=== PATIENT | female | born 1950 | race Caucasian/White ===

== ENCOUNTER 2017-08-26 17:09 | Inpatient (IN) ==
--- NOTE | 2017-08-26 20:19 | Internal Med History&Physical ---
<Luiz Jo - Last Filed: 08/26/17 21:15> Date of Encounter: 08/26/17 Time of Encounter: 20:19 Internal Medicine - H&P: HPI Chief complaint: Hematemesis Admitted From: Hospital to Hospital Transfer Plans for Post Hospital Care: Transfer Other ([facility]) History of present illness: Ms. Clifford is a 67 year old female with a PMH of RA, HTN, HLD, and carotid stenosis who presents from [facility] due to GI bleed. Patient reports waking up at 3 AM this morning vomiting blood 3 episodes. EMS at the scene reported coffee-ground output. Patient reports feeling dizzy at the time "like the room was spinning." She reported to the [facility] ED where a chest x-ray and CT scan of her abdomen pelvis were performed. Images were loaded into PACS and records were requested from [facility]. Patient was discharged from the ED with Meclizine for dizziness and Macrobid for urinary tract infection. Soon after patient returned home, she started having lack stool and called her physician, Dr. Greenberg. He requested the patient report the ED. Patient was transferred to [facility] for further evaluation. Patient reports taking two 81 mg aspirins per day. Past Med Surg Social Fam HX - Past Medical History Medical history: arthritis (RA), hyperlipidemia, hypertension, other (Carotid stenosis) - Past Surgical History Surgical History: carotid endarterectomy (Left), other (LEEP) - Social History Smoking Status: Never smoker Alcohol use: none Drug use: none Current living situation: Home - Independent - Family History Father Hx Family Endocrine Disorder: Yes (DM) All Systems PM: A 10-system review of systems was performed and is negative for pertinent findings except as documented above in the HPI. - Constitutional Constitutional: anorexia, fatigue, lethargy, weakness, no chills, no fever(s), no weight gain, no weight loss - EENT Eyes: no blurry vision, no diplopia, no discharge Nose, mouth and throat: no nasal congestion, no nasal discharge, no sore throat - Cardiovascular Cardiovascular ROS IM: no chest pain, no dyspnea on exertion, no palpitations - Respiratory Respiratory: no cough, no dyspnea, no hemoptysis - Gastrointestinal Gastrointestinal: abdominal pain (Suprapubic), cramping, hematemesis, melena, nausea, vomiting - Genitourinary Genitourinary: no dysuria, no flank pain, no nocturia, no urinary frequency, no urinary urgency - Musculoskeletal Musculoskeletal ROS IM: arthralgias, no muscle cramps, no numbness, no tingling - Integumentary Integumentary IM: other (pale), no erythema, no rash - Neurological Neurological ROS: dizziness, weakness, no numbness, no tingling - Psychiatric Psychiatric: no anxiety, no depression - Endocrine Endocrine IM: fatigue, no flushing, no polydipsia, no polyphagia, no polyuria - Hematologic/Lymphatic Hematologic/Lymphatic: no easy bleeding, no easy bruising - Constitutional Vitals: Temp Pulse Resp BP Pulse Ox 97.5 F L 87 16 104/62 99 08/26/17 19:57 08/26/17 19:57 08/26/17 19:57 08/26/17 19:57 08/26/17 19:57 General appearance: Present: cooperative, A&O X 3, morbidly obese, pleasant, no acute distress, answers questions appropriately - Head Head exam: Present: atraumatic, normocephalic - Eye Eye exam: Present: PERRL, conjuntiva pink (Pale), sclera anicteric Pupils: Present: PERRL - ENT ENT exam: Present: mucous membranes moist, normal external ear exam, normal oropharynx - Neck Neck exam general surgery: Present: supple, trachea midline. Absent: lymphadenopathy, tenderness - Respiratory Respiratory exam: Present: CTAB. Absent: accessory muscle use, rales, rhonchi, wheezes - Cardiovascular Cardiovascular exam: Present: RRR, +S1, +S2. Absent: diastolic murmur, gallop, rubs, systolic murmur - GI/Abdominal GI/Abdominal exam: Present: normal bowel sounds, soft, no peritoneal signs. Absent: distended, guarding, tenderness - Extremities Exam Extremities exam: Present: warm, radial pulses palpable and symmetrical. Absent : calf tenderness, cyanotic, pedal edema - Back Exam Back exam: Present: normal inspection. Absent: tenderness - Neurological Exam Neurological exam: Present: CN II-XII intact, oriented X3, no focal deficits. Absent: pronater drift, facial droop, speech deficit - Psychiatric Psychiatric exam: Present: normal affect, normal mood - Skin Skin exam: Present: dry, intact, pallor, warm. Absent: normal color Internal Med - H&P Results - Pulse Oximetry Interpretation Digit-Finger O2 Sat by Pulse Oximetry: 99 (On RA) - Assessment and plan (1) GI bleed Current Visit: Yes Status: Acute Assessment and plan: Acute GI bleed: Hematemesis 3 and melena for 1 day Labs from [facility] reveal hemoglobin 8.1, hematocrit 28.1 Monitor H&H q6h. Type and screen pending. Transfuse if HGB<8 Hemodynamically stable at this time. Orthostatics pending. Start IVF 125cc/hr Continue Protonix IV twice a day Case discussed with Dr. Ocasio, who requested starting Carafate and continuing PPI NPO except medications, anticipate EGD tomorrow Qualifiers: GI bleed type/associated pathology: unspecified gastrointestinal hemorrhage type Qualified Code(s): K92.2 - Gastrointestinal hemorrhage, unspecified (2) Hypertension Current Visit: No Status: Chronic Assessment and plan: Continue home meds Qualifiers: Hypertension type: essential hypertension Qualified Code(s): I10 - Essential (primary) hypertension (3) Hyperlipidemia Current Visit: No Status: Chronic Assessment and plan: Continue home meds Qualifiers: Hyperlipidemia type: unspecified Qualified Code(s): E78.5 - Hyperlipidemia , unspecified (4) Rheumatoid arthritis Current Visit: No Status: Chronic Assessment and plan: Continue home meds. Avoid NSAIDs due to GI bleed. Hold home aspirin Qualifiers: Rheumatoid arthritis location: unspecified site Rheumatoid factor presence : unspecified presence Qualified Code(s): M06.9 - Rheumatoid arthritis, unspecified (5) Morbid obesity with BMI of 40.0-44.9, adult Current Visit: No Status: Chronic Assessment and plan: Lifestyle modification (6) DVT prophylaxis Current Visit: Yes Status: Acute Assessment and plan: EPCDs - Time Spent With Patient Total time spent is greater than 50% in coordination of care (as documented) at patient's floor/unit and/or counseling patient: <Coco Joseph - Last Filed: 08/26/17 21:37> Date of Encounter: 08/26/17 Internal Medicine - H&P: HPI History of present illness: Ms. Clifford is a 67 year old female All Systems PM: A 10-system review of systems was performed and is negative for pertinent findings except as documented above in the HPI. - Constitutional Vitals: Temp Pulse Resp BP Pulse Ox 97.5 F L 87 16 104/62 99 08/26/17 19:57 08/26/17 19:57 08/26/17 19:57 08/26/17 19:57 08/26/17 19:57 - Attending Attestation I interviewed and examined the patient personally. Reviewed the resident's note , discuss plan of care. 67 year old patient with history of hypertension, hyperlipidemia, rheumatoid arthritis, status post left carotid endarterectomy on aspirin was transferred from [facility] with the diagnosis of GI bleed, symptomatic anemia with dizziness lightheadedness dyspnea on exertion to [facility] for advancing GI care. During my evaluation patient does not have visible active bleeding but is still feel dizziness with low blood pressure therefore orthostatic ordered. Will start conservative treatment with IV fluid under 25 mL per hour, strict I&O's, serial hemoglobin, IV PPI twice a day, IV Zofran, SCDs for DVT prophylaxis, consult GI specialist, nothing by mouth except medication. 2 unit PRC type and screen and will consider transfusion if hemoglobin less than 8 or active GI bleed with symptoms. No baseline hemoglobin known. No history of blood transfusion in the past. - Assessment and plan (1) GI bleed Current Visit: Yes Status: Acute Qualifiers: GI bleed type/associated pathology: unspecified gastrointestinal hemorrhage type Qualified Code(s): K92.2 - Gastrointestinal hemorrhage, unspecified (2) Hypertension Current Visit: No Status: Chronic Qualifiers: Hypertension type: essential hypertension Qualified Code(s): I10 - Essential (primary) hypertension (3) Hyperlipidemia Current Visit: No Status: Chronic Qualifiers: Hyperlipidemia type: unspecified Qualified Code(s): E78.5 - Hyperlipidemia , unspecified (4) Morbid obesity with BMI of 40.0-44.9, adult Current Visit: No Status: Chronic (5) Rheumatoid arthritis Current Visit: No Status: Chronic Qualifiers: Rheumatoid arthritis location: unspecified site Rheumatoid factor presence : unspecified presence Qualified Code(s): M06.9 - Rheumatoid arthritis, unspecified (6) DVT prophylaxis Current Visit: Yes Status: Acute - Time Spent With Patient Total time spent is greater than 50% in coordination of care (as documented) at patient's floor/unit and/or counseling patient:
[2017-08-26] MEDS ORDERED: Naloxone 0.4 MG/ML INJ IVP PRN (21:05)
[2017-08-26 21:56] LABS: Basophils % 0.6 %; Eosinophils % 0.4 %; Hematocrit 25.4 % (35.3-44.9); Hemoglobin 7.5 g/dL (11.5-15.4); Immature Granulocytes % 0.3 % (0-4); Lymphocytes # 2.3 K/mcL (0.6-4.6); Lymphocytes % 33.8 %; Mean Corpuscular HGB Conc 29.5 g/dL (31.6-35.5); Mean Corpuscular Hemoglobin 23.5 pg (28.0-33.3); Mean Corpuscular Volume 79.6 fL (83.0-100.0); Mean Platelet Volume 10.3 fL (9.4-12.4); Monocytes # 0.6 K/mcL (0.0-1.3); Monocytes % 8.7 %; Neutrophils # 3.8 K/mcL (1.6-8.9); Platelet Count 134 K/mcL (140-400); Red Blood Count 3.19 M/mcL (3.82-4.97); Red Cell Distribution Width 17.2 % (11.5-14.5); Segmented Neutrophils % 56.2 %
[2017-08-26 22:05] LABS: INR 1.5; Prothrombin Time 16.6 Seconds (9.4-12.1)
[2017-08-26 22:08] LABS: Activated Partial Thrombo Time 33.4 Seconds (26.0-36.0)
[2017-08-26 22:15] LABS: BUN/Creatinine Ratio 55 (6-26); Blood Urea Nitrogen 47 mg/dL (8-23); Calcium 8.4 mg/dL (8.6-10.3); Carbon Dioxide 23 mEq/L (23-29); Chloride 114 mEq/L (98-107); Glucose 119 mg/dL (70-105); Osmolality,Calculated 307 (280-300); Potassium 4.4 mEq/L (3.5-5.1); Sodium 142 mEq/L (136-145); eGFR For African Americans > 60 (> 60); eGFR For Non-African Americans > 60 (> 60)
[2017-08-26] MEDS: Sucralfate 1 GM TABLET PO SCH (22:33)
[2017-08-26] MEDS: 0.9 % Sodium Chloride 1,000 ML IVC SCH (22:33)
[2017-08-27] MEDS: Ondansetron 4 MG/2 ML VIAL IVP PRN ×2 (01:32→16:14)
[2017-08-27] MEDS ORDERED: 0.9 % Sodium Chloride 250 ML ONE (02:40)
[2017-08-27] MEDS: Pantoprazole 40 MG VIAL IVP SCH ×2 (05:45→17:47)
[2017-08-27 06:37] LABS: Hematocrit 27.6 % (35.3-44.9); Hemoglobin 8.4 g/dL (11.5-15.4)
[2017-08-27] MEDS: Sucralfate 1 GM TABLET PO SCH ×4 (08:30→22:02)
--- NOTE | 2017-08-27 10:28 | Anesthesia Evaluation PreOp ---
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 History: Denies Any Significant HX Other Medical History: Other (obesity BMI=41.2, RA) Anesthesia History: Past Anesthesia, Problems (PONV) Alcohol Use: none Drug use: none Medications and Allergies Aspirin Enteric Coated [Aspirin EC] 81 mg PO DAILY 08/27/17 [History] Atorvastatin [Lipitor] 40 mg PO HS 08/27/17 [History] Clopidogrel [Plavix] 75 mg PO DAILY 08/27/17 [History] Furosemide [Lasix] 20 mg PO DAILY 08/27/17 [History] Hydroxychloroquine Sulfate [Plaquenil] 200 mg PO DAILY 08/27/17 [History] Lisinopril [Zestril] 5 mg PO DAILY 08/27/17 [History] Meclizine [Antivert] 12.5 - 25 mg PO Q8H PRN 08/27/17 [History] Nitrofurantoin Monohyd/M-Cryst [Macrobid 100 mg Capsule] 100 mg PO BID 08/27/17 [History] Pantoprazole Sodium 40 mg PO DAILY 08/27/17 [History] 3 Allergy/AdvReac Type Severity Reaction Status Date / Time No Known Drug Allergies Allergy See Verified 08/27/17 10:32 Comments - Meds/Allergy Pre-op Review Medications Reviewed: Yes Allergies Reviewed: Yes Beta Blockers on Current Med List: No Anesthesia Results - Labs 08/27/17 06:22 08/26/17 21:35 Anesthesia Exam Vital Signs/O2 Sat, Most Current Temp Pulse Resp BP Pulse Ox 97.9 F 75 15 140/75 100 08/27/17 11:49 08/27/17 11:49 08/27/17 11:49 08/27/17 11:49 08/27/17 11:49 Height: 5'4''/1.63m Weight: 240 lbs/108.86 kg NPO (# of Hours): 8 Pain Scale: 0 Pain Scale Used: Numeric (1 - 10) - HEENT Pupil (Motor): EOMI Mallampati: III Teeth: Normal (chipped right lower molar) Oral Opening: Greater than 3 - FLASH OVEN OPERATOR LOC: Oriented FLASH OVEN OPERATOR Motor: Normal RUE, Normal LUE, Normal RLE, Normal LLE, Normal Face FLASH OVEN OPERATOR Sensory: Normal: RUE, LUE, RLE, LLE, Face - Cardiac Rhythm: Regular Murmur: None - Pulmonary Breath Sounds: bilateral Clear Respiratory Effort: Symmetrical Anesthesia Assess/Plan ASA Score: 3 Modified [place] Scale for Level of Consciousness: Cooperative, oriented, and tranquil Anesthetic Plan: MAC Monitoring Plan: Standard Monitors
[2017-08-27] MEDS: 0.9 % Sodium Chloride 1,000 ML IVC SCH (11:05)
--- NOTE | 2017-08-27 11:30 | General Surgery Consult Note ---
<James Cyr W - Last Filed: 08/27/17 11:49> Date of Encounter: 08/27/17 Time of Encounter: 09:00 Assessment and Plan (1) GI bleed Current Visit: Yes Status: Acute Based on patient history and physical exam it is likely the patient has an upper GI bleed Plan: Upper GI endoscopy recommended within the next 24-48 hours NPO Carafate slurry IV PPI antiemetics PRN pain control ambulate Qualifiers: GI bleed type/associated pathology: unspecified gastrointestinal hemorrhage type Qualified Code(s): K92.2 - Gastrointestinal hemorrhage, unspecified History of Present Illness Consult date: 08/27/17 Reason for consult: abdominal pain History of present illness: Mrs. Clifford is a 67 year old female with a PMH of RA, HTN, HLD, and carotid stenosis who was given a Surgical consult for an upper GI bleed. The patient had previous episodes of coffee ground emesis 08/26/17 in the morning. She reported feeling dizzy. Currently the patient has epigastric tenderness that has been constant and sharp. The patient has no history of GERD. patient denies pain with eating. Pt last reported melena with a small Bowel movement this morning around 07:00. Last Hemoglobin and Hematocit was 8.4 and 27.6 on08/27/17 Past Med Surg Social Fam HX - Past Medical History Medical history: arthritis (RA), hyperlipidemia, hypertension, other (Carotid stenosis) - Past Surgical History Surgical History: carotid endarterectomy (Left), other (LEEP) Additional surgical history: LEEP - Social History Smoking Status: Never smoker Alcohol use: none Drug use: none - Family History Father Hx Family Endocrine Disorder: Yes (DM) Medications and Allergies Aspirin Enteric Coated [Aspirin EC] 81 mg PO DAILY 08/27/17 [History] Atorvastatin [Lipitor] 40 mg PO HS 08/27/17 [History] Clopidogrel [Plavix] 75 mg PO DAILY 08/27/17 [History] Furosemide [Lasix] 20 mg PO DAILY 08/27/17 [History] Hydroxychloroquine Sulfate [Plaquenil] 200 mg PO DAILY 08/27/17 [History] Lisinopril [Zestril] 5 mg PO DAILY 08/27/17 [History] Meclizine [Antivert] 12.5 - 25 mg PO Q8H PRN 08/27/17 [History] Nitrofurantoin Monohyd/M-Cryst [Macrobid 100 mg Capsule] 100 mg PO BID 08/27/17 [History] Pantoprazole Sodium 40 mg PO DAILY 08/27/17 [History] 3 Allergy/AdvReac Type Severity Reaction Status Date / Time No Known Drug Allergies Allergy See Verified 08/27/17 10:32 Comments Review of Systems All systems PM: The remainder of the systems were reviewed and are negative - Constitutional as per HPI - Cardiovascular no chest pain, no dyspnea, no dyspnea on exertion - Respiratory no dyspnea, no dyspnea on exertion - Gastrointestinal as per HPI - Genitourinary Genitourinary: no change in urinary stream, no difficulty urinating - Neurological no abnormal gait, no dizziness, no weakness General Surgery Exam Initial Vital Signs Temp Pulse Resp BP Pulse Ox 97.5 F L 87 16 104/62 99 08/26/17 19:57 08/26/17 19:57 08/26/17 19:57 08/26/17 19:57 08/26/17 19:57 - General physical appearance well developed, well nourished - ENT atraumatic, normocephalic, CN 2-12 grossly intact - Respiratory normal expansion, normal respiratory effort, clear to auscultation - Cardiovascular Cardiovascular exam: Present: RRR, no murmurs/rubs/gallops - Abdomen Abdomen general surgery: Present: bowel sounds present, soft, tender Abdominal Tenderness: Present: epigastic Hernia: Present: none - Genitourinary Present: normal external genitalia, normal perineum - Neurologic Present: CN 2-12 grossly intact, normal coordination, normal sensation - Musculoskeletal Present: normal gait, normal posture - Psychiatric Psychiatric general surgery: Present: appropriate, oriented to person, oriented to place, oriented to time, speech is normal, memory intact Exam Initial Vital Signs Temp Pulse Resp BP Pulse Ox 97.5 F L 87 16 104/62 99 08/26/17 19:57 08/26/17 19:57 08/26/17 19:57 08/26/17 19:57 08/26/17 19:57 Results - Labs 08/27/17 06:22 08/26/17 21:35 Abnormal lab results RBC 3.19 M/mcL (3.82-4.97) L 07/05/18 21:35 Hgb 8.4 g/dL (11.5-15.4) L 08/27/17 06:22 Hct 27.6 % (35.3-44.9) L 08/27/17 06:22 MCV 79.6 fL (83.0-100.0) L 08/26/17 21:35 MCH 23.5 pg (28.0-33.3) L 08/26/17 21:35 MCHC 29.5 g/dL (31.6-35.5) L 08/26/17 21:35 RDW 17.2 % (11.5-14.5) H 08/26/17 21:35 Plt Count 134 K/mcL (140-400) L 08/26/17 21:35 PT 16.6 Seconds (9.4-12.1) H 08/26/17 21:35 Chloride 114 mEq/L (98-107) H 08/26/17 21:35 BUN 47 mg/dL (8-23) H 08/26/17 21:35 BUN/Creatinine Ratio 55 (6-26) H 08/26/17 21:35 Glucose 119 mg/dL (70-105) H 08/26/17 21:35 POC Glucose 147 mg/dL (70-99) H 08/27/17 05:36 Calculated Osmolality 307 (280-300) H 08/26/17 21:35 Calcium 8.4 mg/dL (8.6-10.3) L 08/26/17 21:35 Diabetes panel 08/26/17 Range/Units 21:35 Sodium 142 (136-145) mEq/L Potassium 4.4 (3.5-5.1) mEq/L Chloride 114 H (98-107) mEq/L Carbon Dioxide 23 (23-29) mEq/L BUN 47 H (8-23) mg/dL Creatinine 0.85 (0.60-1.20) mg/dL Glucose 119 H (70-105) mg/dL Calcium 8.4 L (8.6-10.3) mg/dL Calcium panel 08/26/17 Range/Units 21:35 Calcium 8.4 L (8.6-10.3) mg/dL Pituitary panel 08/26/17 Range/Units 21:35 Sodium 142 (136-145) mEq/L Potassium 4.4 (3.5-5.1) mEq/L Chloride 114 H (98-107) mEq/L Carbon Dioxide 23 (23-29) mEq/L BUN 47 H (8-23) mg/dL Creatinine 0.85 (0.60-1.20) mg/dL Glucose 119 H (70-105) mg/dL Calcium 8.4 L (8.6-10.3) mg/dL Adrenal panel 08/26/17 Range/Units 21:35 Sodium 142 (136-145) mEq/L Potassium 4.4 (3.5-5.1) mEq/L Chloride 114 H (98-107) mEq/L Carbon Dioxide 23 (23-29) mEq/L BUN 47 H (8-23) mg/dL Creatinine 0.85 (0.60-1.20) mg/dL Glucose 119 H (70-105) mg/dL Calcium 8.4 L (8.6-10.3) mg/dL All other labs normal. Consult Discharge Plan - Plan Referrals: Preethi Green [Primary Care Provider] - <Terri Ocasio - Last Filed: 08/27/17 17:37> Date of Encounter: 08/27/17 Assessment and Plan (1) GI bleed Current Visit: Yes Status: Acute discussed with patient given her hematemesis and later melena she likely has an upper GIB she will remain npo, will plan EGD later today continue IVF hydration continue PPI therapy and po carafate liquid 1 gm TID serial Hb checks Qualifiers: GI bleed type/associated pathology: unspecified gastrointestinal hemorrhage type Qualified Code(s): K92.2 - Gastrointestinal hemorrhage, unspecified History of Present Illness Reason for consult: endoscopy Requesting physician: Luiz Jo History of present illness: Patient with hematemesis 2 days ago and went to outside hospital who treated patient with medication and was discharged. The following day she began having melena. She complains of weakness. She has epigastric pain and discomfort for 1 day. She presented to OSH again and was transferred here. No further hematemesis. No nausea currently. She has been started on PPI and carafate. Patient does take aspirin and plavix. Past Med Surg Social Fam HX - Past Medical History Source: patient - Social History Current living situation: Home - Independent Activity Level: Independent ambulation Review of Systems All systems PM: reviewed and no additional remarkable complaints except as stated All systems PM: The remainder of the systems were reviewed and are negative General Surgery Exam Initial Vital Signs Temp Pulse Resp BP Pulse Ox 97.5 F L 87 16 104/62 99 08/26/17 19:57 08/26/17 19:57 08/26/17 19:57 08/26/17 19:57 08/26/17 19:57 - General physical appearance well developed, well nourished, no distress, obese, other (pale) - Eyes PERRL, normal ocular movement - ENT normal mucosa, normocephalic - Neck trachea midline - Respiratory normal respiratory effort, clear to auscultation - Cardiovascular Cardiovascular exam: Present: RRR - Abdomen Abdomen general surgery: Present: bowel sounds present, soft, tender. Absent: guarding, rebound Abdominal Tenderness: Present: epigastic - Integumentary Integumentary general surgery: Present: warm and dry, no abnormal pigmentation - Neurologic Present: CN 2-12 grossly intact - Musculoskeletal Present: normal posture - Psychiatric Psychiatric general surgery: Present: A&Ox3, speech is normal Exam Initial Vital Signs Temp Pulse Resp BP Pulse Ox 97.5 F L 87 16 104/62 99 08/26/17 19:57 08/26/17 19:57 08/26/17 19:57 08/26/17 19:57 08/26/17 19:57 Results - Labs 08/27/17 06:22 08/26/17 21:35 Abnormal lab results RBC 3.19 M/mcL (3.82-4.97) L 08/26/17 21:35 Hgb 8.4 g/dL (11.5-15.4) L 08/27/17 06:22 Hct 27.6 % (35.3-44.9) L 08/27/17 06:22 MCV 79.6 fL (83.0-100.0) L 08/26/17 21:35 MCH 23.5 pg (28.0-33.3) L 08/26/17 21:35 MCHC 29.5 g/dL (31.6-35.5) L 08/26/17 21:35 RDW 17.2 % (11.5-14.5) H 08/26/17 21:35 Plt Count 134 K/mcL (140-400) L 08/26/17 21:35 PT 16.6 Seconds (9.4-12.1) H 08/26/17 21:35 Chloride 114 mEq/L (98-107) H 08/26/17 21:35 BUN 47 mg/dL (8-23) H 08/26/17 21:35 BUN/Creatinine Ratio 55 (6-26) H 08/26/17 21:35 Glucose 119 mg/dL (70-105) H 08/26/17 21:35 POC Glucose 147 mg/dL (70-99) H 08/27/17 05:36 Calculated Osmolality 307 (280-300) H 08/26/17 21:35 Calcium 8.4 mg/dL (8.6-10.3) L 08/26/17 21:35 Diabetes panel 08/26/17 Range/Units 21:35 Sodium 142 (136-145) mEq/L Potassium 4.4 (3.5-5.1) mEq/L Chloride 114 H (98-107) mEq/L Carbon Dioxide 23 (23-29) mEq/L BUN 47 H (8-23) mg/dL Creatinine 0.85 (0.60-1.20) mg/dL Glucose 119 H (70-105) mg/dL Calcium 8.4 L (8.6-10.3) mg/dL Calcium panel 08/26/17 Range/Units 21:35 Calcium 8.4 L (8.6-10.3) mg/dL Pituitary panel 08/26/17 Range/Units 21:35 Sodium 142 (136-145) mEq/L Potassium 4.4 (3.5-5.1) mEq/L Chloride 114 H (98-107) mEq/L Carbon Dioxide 23 (23-29) mEq/L BUN 47 H (8-23) mg/dL Creatinine 0.85 (0.60-1.20) mg/dL Glucose 119 H (70-105) mg/dL Calcium 8.4 L (8.6-10.3) mg/dL Adrenal panel 08/26/17 Range/Units 21:35 Sodium 142 (136-145) mEq/L Potassium 4.4 (3.5-5.1) mEq/L Chloride 114 H (98-107) mEq/L Carbon Dioxide 23 (23-29) mEq/L BUN 47 H (8-23) mg/dL Creatinine 0.85 (0.60-1.20) mg/dL Glucose 119 H (70-105) mg/dL Calcium 8.4 L (8.6-10.3) mg/dL All other labs normal. - Attending Attestation I examined this patient and my medical decision-making was reviewed with the Resident Physician. I agree with the documented findings, disposition and treatment plan as described except to the extent set forth below.
--- NOTE | 2017-08-27 13:20 | Internal Med Progress Note ---
<ChadwickGabyChris Wali - Last Filed: 08/27/17 13:14> Date of Encounter: 08/27/17 Time of Encounter: 13:15 - Assessment and plan (1) GI bleed Current Visit: Yes Status: Acute Assessment and plan: Patient presented with hematemesis and melena, with a history of chronic aspirin use and NSAID use for RA. This is likely a manifestation of peptic ulcer disease. However the patient also has an elevated INR which could represent liver damage. Surgery has been consulted and an EGD is scheduled. I have also ordered a CMP for tomorrow morning to monitor liver function. The patient has a stable H&H after 1 unit of blood, and she is receiving Protonix IV. Will continue to monitor H&H. Qualifiers: GI bleed type/associated pathology: unspecified gastrointestinal hemorrhage type Qualified Code(s): K92.2 - Gastrointestinal hemorrhage, unspecified (2) Hypertension Current Visit: No Status: Chronic Assessment and plan: chronic and controlled on home meds Qualifiers: Hypertension type: essential hypertension Qualified Code(s): I10 - Essential (primary) hypertension (3) Hyperlipidemia Current Visit: No Status: Chronic Assessment and plan: Chronic and controlled on home meds Qualifiers: Hyperlipidemia type: unspecified Qualified Code(s): E78.5 - Hyperlipidemia , unspecified (4) Morbid obesity with BMI of 40.0-44.9, adult Current Visit: No Status: Chronic Assessment and plan: Patient will be counseled prior to discharge (5) Rheumatoid arthritis Current Visit: No Status: Chronic Assessment and plan: Chronic and controlled with home meds Qualifiers: Rheumatoid arthritis location: unspecified site Rheumatoid factor presence : unspecified presence Qualified Code(s): M06.9 - Rheumatoid arthritis, unspecified (6) DVT prophylaxis Current Visit: Yes Status: Acute Assessment and plan: DVT prophylaxis with pneumatic leg devices - Time Spent With Patient Total time spent is greater than 50% in coordination of care (as documented) at patient's floor/unit and/or counseling patient: - Subjective Interval history: Patient was admitted for hematemesis and melena. Since admission patient has not had any more episodes of hematemesis, but has had bowel movements. She also complains of intermittent upper abdominal pain. She denies chest pain or shortness of breath. She was informed of the plan for endoscopy. - Constitutional Vitals: Temp Pulse Resp BP Pulse Ox 97.9 F 75 15 140/75 100 08/27/17 11:49 08/27/17 11:49 08/27/17 11:49 08/27/17 11:49 08/27/17 11:49 General appearance: Present: cooperative, A&O X 3, morbidly obese, pleasant, no acute distress, answers questions appropriately Exam: No acute distress Alert and oriented x3 Mucous membranes moist Skin warm and dry Heart regular rate and rhythm with 3/6 systolic ejection murmur Lungs clear to auscultation bilaterally, without adventitia Abdomen tender to palpation in bilateral upper quadrants, bowel sounds normal Internal Medicine: Result - Labs CBC & Chem 7: 08/27/17 06:22 08/26/17 21:35 Labs: Short CBC 08/26/17 08/27/17 Range/Units 21:35 06:22 WBC 6.8 (4.3-11.1) K/mcL Hgb 7.5 L 8.4 L (11.5-15.4) g/dL Hct 25.4 L 27.6 L (35.3-44.9) % Plt Count 134 L (140-400) K/mcL Neutrophils # 3.8 (1.6-8.9) K/mcL BMP 08/26/17 21:35 Sodium 142 Potassium 4.4 Chloride 114 H Carbon Dioxide 23 BUN 47 H Creatinine 0.85 Glucose 119 H Calcium 8.4 L - ABG Interpretation ABG results: PT/INR, D-dimer PT 16.6 Seconds (9.4-12.1) H 08/26/17 21:35 Consult Discharge Plan - Plan Referrals: Preethi Green [Primary Care Provider] - <Bella Wilder - Last Filed: 08/27/17 18:51> Date of Encounter: 08/27/17 - Assessment and plan (1) GI bleed Current Visit: Yes Status: Acute Qualifiers: GI bleed type/associated pathology: unspecified gastrointestinal hemorrhage type Qualified Code(s): K92.2 - Gastrointestinal hemorrhage, unspecified (2) Hypertension Current Visit: No Status: Chronic Qualifiers: Hypertension type: essential hypertension Qualified Code(s): I10 - Essential (primary) hypertension (3) Hyperlipidemia Current Visit: No Status: Chronic Qualifiers: Hyperlipidemia type: unspecified Qualified Code(s): E78.5 - Hyperlipidemia , unspecified (4) Morbid obesity with BMI of 40.0-44.9, adult Current Visit: No Status: Chronic (5) Rheumatoid arthritis Current Visit: No Status: Chronic Qualifiers: Rheumatoid arthritis location: unspecified site Rheumatoid factor presence : unspecified presence Qualified Code(s): M06.9 - Rheumatoid arthritis, unspecified (6) DVT prophylaxis Current Visit: Yes Status: Acute - Time Spent With Patient Total time spent is greater than 50% in coordination of care (as documented) at patient's floor/unit and/or counseling patient: - Constitutional Vitals: Temp Pulse Resp BP Pulse Ox 98.3 F 59 18 134/58 100 08/27/17 16:55 08/27/17 16:55 08/27/17 16:55 08/27/17 16:55 08/27/17 16:55 Internal Medicine: Result - Labs CBC & Chem 7: 08/27/17 06:22 08/26/17 21:35 Labs: Short CBC 08/26/17 08/27/17 Range/Units 21:35 06:22 WBC 6.8 (4.3-11.1) K/mcL Hgb 7.5 L 8.4 L (11.5-15.4) g/dL Hct 25.4 L 27.6 L (35.3-44.9) % Plt Count 134 L (140-400) K/mcL Neutrophils # 3.8 (1.6-8.9) K/mcL BMP 08/26/17 21:35 Sodium 142 Potassium 4.4 Chloride 114 H Carbon Dioxide 23 BUN 47 H Creatinine 0.85 Glucose 119 H Calcium 8.4 L - ABG Interpretation ABG results: PT/INR, D-dimer PT 16.6 Seconds (9.4-12.1) H 08/26/17 21:35 - Attending Attestation I examined this patient and my medical decision-making was reviewed with the Resident Physician. I agree with the documented findings, disposition and treatment plan as described except to the extent set forth below.
[2017-08-27] MEDS ORDERED: *HR* Propofol 200 MG/20 ML VIAL IVP ONE (16:44)
[2017-08-27] MEDS ORDERED: Lidocaine -MPF 2% 2 ML VIAL ONE (16:45)
[2017-08-27] MEDS ORDERED: 0.9 % Sodium Chloride 1,000 ML IVC SCH ×2 (17:15→23:15)
--- NOTE | 2017-08-27 17:23 | Anesthesia Evaluation Post Op ---
Date of Encounter: 08/27/17 Time of Encounter: 17:21 - Vital Signs Vital Signs: 3 Vital Signs Time 1720 BP 102/52 Pulse 82 Resp 20 O2 Sat 100 - Lungs Lungs: Clear Ascult./Percussion - Airway Airway: Non-obstructed - Cardiovascular Regular Rate - Mental Status Mental Status: Asleep with brisk response to light stimulation - Nausea Vomiting Nausea Vomiting: Not Present - Hydration Hydration: NPO, Has not voided - Discharge PostOp Status: Transfer Patient to floor
--- NOTE | 2017-08-27 17:41 | Event Note ---
Date of Encounter: 08/27/17 Time of Encounter: 17:38 EGD showed moderate sized clot at gastric fundus, no obvious active bleeding. no obvious lesions in stomach or duodenum or esophagus. Likely ulcer or other lesion beneath clot which was not disturbed. recommend continued npo today continue carafate and PPI if Hb stable for 24 hrs ok to start clears will repeat EGD wednesday
[2017-08-28 00:08] LABS: Hematocrit 20.9 % (35.3-44.9)
[2017-08-28 00:10] LABS: Hemoglobin 6.3 g/dL (11.5-15.4)
[2017-08-28] MEDS ORDERED: Pantoprazole 40 MG in 0.9 % Sodium Chloride Mini Bag 100 ML IVC SCH (02:15)
[2017-08-28] MEDS ORDERED: Naloxone 0.4 MG/ML INJ IVP PRN (03:14)
[2017-08-28] MEDS ORDERED: Ondansetron 4 MG/2 ML VIAL IVP PRN (03:14)
[2017-08-28] MEDS: 0.9 % Sodium Chloride 1,000 ML IVC SCH ×2 (03:30→19:48)
[2017-08-28] MEDS ORDERED: 0.9 % Sodium Chloride 250 ML ONE ×2 (03:59→09:51)
[2017-08-28] MEDS: Pantoprazole 40 MG in 0.9 % Sodium Chloride Mini Bag 100 ML IVC SCH ×4 (05:31→19:48)
[2017-08-28] MEDS: Sucralfate 1 GM TABLET PO SCH ×4 (06:32→19:49)
--- NOTE | 2017-08-28 11:22 | Internal Med Progress Note ---
Date of Encounter: 08/28/17 Time of Encounter: 11:19 - Assessment and plan (1) GI bleed Current Visit: Yes Status: Acute Assessment and plan: Patient presented with hematemesis and melena, with a history of chronic aspirin use and NSAID use for RA. PUD most likely based on presentation. She had elevated INR at 1.5. She has no known hepatic disease. A liver ultrasound done today could not adequately visualize Liver. EGD showed clotted blood in gastric fundus. No visualized varicies. - Carefully monitor for hepatic disease with varicies. Repeat INR and follow- up LFT today. If INR and/or LFT abnormal, will get CT abdomen to check for cirrhosis. - Continue 2 units PRBC today. Rehceck H&H per protocol and monitor vital signs closely - Repeat EGD is planned for wednesday Qualifiers: GI bleed type/associated pathology: unspecified gastrointestinal hemorrhage type Qualified Code(s): K92.2 - Gastrointestinal hemorrhage, unspecified (2) Hypertension Current Visit: No Status: Chronic Assessment and plan: chronic and controlled on home meds Qualifiers: Hypertension type: essential hypertension Qualified Code(s): I10 - Essential (primary) hypertension (3) Hyperlipidemia Current Visit: No Status: Chronic Assessment and plan: Chronic and controlled on home meds Qualifiers: Hyperlipidemia type: unspecified Qualified Code(s): E78.5 - Hyperlipidemia , unspecified (4) Morbid obesity with BMI of 40.0-44.9, adult Current Visit: No Status: Chronic Assessment and plan: Patient will be counseled prior to discharge (5) Rheumatoid arthritis Current Visit: No Status: Chronic Qualifiers: Rheumatoid arthritis location: unspecified site Rheumatoid factor presence : unspecified presence Qualified Code(s): M06.9 - Rheumatoid arthritis, unspecified (6) DVT prophylaxis Current Visit: Yes Status: Acute Assessment and plan: DVT prophylaxis with pneumatic leg devices - Time Spent With Patient Total time spent is greater than 50% in coordination of care (as documented) at patient's floor/unit and/or counseling patient: - Subjective Interval history: Patient transferred to step-down unit as she had an acute drop of hemoglobin to 6.3 (was 7.5) and she is being transfused 2 units PRBC at the moment. She currently has no complaints. She denies CP, SOB, n/v, hematemesis, melena, hematochezia. - Constitutional Vitals: Temp Pulse Resp BP Pulse Ox 98.1 F 82 20 112/38 98 08/28/17 10:43 08/28/17 10:43 08/28/17 10:43 08/28/17 10:43 08/28/17 07:27 General appearance: Present: cooperative, A&O X 3, morbidly obese, pleasant, no acute distress, answers questions appropriately - Head Head exam: Present: atraumatic, normocephalic - Eye Eye exam: Present: PERRL, conjuntiva pink, sclera anicteric Pupils: Present: PERRL - Neck Neck exam general surgery: Present: supple, trachea midline. Absent: lymphadenopathy - Respiratory Respiratory exam: Present: CTAB. Absent: accessory muscle use, rales, rhonchi, wheezes - Cardiovascular Cardiovascular exam: Present: +S1, +S2, systolic murmur. Absent: diastolic murmur, gallop, rubs - GI/Abdominal GI/Abdominal exam: Present: normal bowel sounds, soft, no peritoneal signs. Absent: distended, tenderness - Extremities Exam Extremities exam: Present: warm, radial pulses palpable and symmetrical. Absent : calf tenderness, cyanotic, pedal edema - Neurological Exam Neurological exam: Present: CN II-XII intact, oriented X3, no focal deficits. Absent: pronater drift, facial droop, speech deficit - Skin Skin exam: Present: dry, intact Internal Medicine: Result - Labs CBC & Chem 7: 08/27/17 23:29 08/26/17 21:35 Labs: Short CBC 08/27/17 Range/Units 23:29 Hgb 6.3 L D (11.5-15.4) g/dL Hct 20.9 L (35.3-44.9) % - ABG Interpretation ABG results: PT/INR, D-dimer PT 16.6 Seconds (9.4-12.1) H 08/26/17 21:35 - Impressions Impressions Liver Ultrasound 08/28/17 09:00 IMPRESSION: Examination degraded by overlying bowel gas. Possible subtle nodular contour of the hepatic surface may represent cirrhosis, however, the liver is not well evaluated due to extensive overlying bowel gas. D/ / Steve Cheng MD / Steve Cheng MD Interpreting Provider: Steve Cheng MD Consult Discharge Plan - Plan Referrals: Preethi Green [Primary Care Provider] -
--- NOTE | 2017-08-28 14:15 | General Surgery Consult Note ---
Addendum entered and electronically signed by Lico Garcia 08/28/17 14:47: Continue monitoring hemoglobin and hematocrit Original Note: <Lico Garcia - Last Filed: 08/28/17 14:21> Date of Encounter: 08/28/17 Time of Encounter: 09:00 Assessment and Plan (1) GI bleed Current Visit: Yes Status: Acute Repeat GI endoscopy 08/30 Ice chips and non-red popsicales IV PPI antiemetics PRN pain control ambulate carafate slurry Qualifiers: GI bleed type/associated pathology: unspecified gastrointestinal hemorrhage type Qualified Code(s): K92.2 - Gastrointestinal hemorrhage, unspecified History of Present Illness Consult date: 08/28/17 Reason for consult: abdominal pain (GI Bleed unspecified) History of present illness: Mrs. Clifford is a 67 year old female with a PMH of RA, HTN, HLD, and carotid stenosis who was given a Surgical consult for an upper GI bleed. Patient appears in no acute distress. Patient requested liquids, was allowed to have ice chips and popsicles that aren't red. Past Med Surg Social Fam HX - Past Medical History Medical history: arthritis (RA), hyperlipidemia, hypertension, other (Carotid stenosis) - Past Surgical History Surgical History: carotid endarterectomy (Left), other (LEEP) Additional surgical history: LEEP - Social History Smoking Status: Never smoker Alcohol use: none Drug use: none - Family History Father Hx Family Endocrine Disorder: Yes (DM) Medications and Allergies Aspirin Enteric Coated [Aspirin EC] 81 mg PO DAILY 08/27/17 [History] Atorvastatin [Lipitor] 40 mg PO HS 08/27/17 [History] Clopidogrel [Plavix] 75 mg PO DAILY 08/27/17 [History] Furosemide [Lasix] 20 mg PO DAILY 08/27/17 [History] Hydroxychloroquine Sulfate [Plaquenil] 200 mg PO DAILY 08/27/17 [History] Lisinopril [Zestril] 5 mg PO DAILY 08/27/17 [History] Meclizine [Antivert] 12.5 - 25 mg PO Q8H PRN 08/27/17 [History] Nitrofurantoin Monohyd/M-Cryst [Macrobid 100 mg Capsule] 100 mg PO BID 08/27/17 [History] Pantoprazole Sodium 40 mg PO DAILY 08/27/17 [History] 3 Allergy/AdvReac Type Severity Reaction Status Date / Time No Known Drug Allergies Allergy See Verified 08/27/17 10:32 Comments Review of Systems All systems PM: The remainder of the systems were reviewed and are negative General Surgery Exam Initial Vital Signs Temp Pulse Resp BP Pulse Ox 97.5 F L 87 16 104/62 99 08/26/17 19:57 08/26/17 19:57 08/26/17 19:57 08/26/17 19:57 08/26/17 19:57 - General physical appearance well developed, well nourished, no distress - Abdomen Abdomen general surgery: Present: soft, tender Abdominal Tenderness: Present: epigastic - Psychiatric Psychiatric general surgery: Present: appropriate, oriented to person, oriented to place Exam Initial Vital Signs Temp Pulse Resp BP Pulse Ox 97.5 F L 87 16 104/62 99 08/26/17 19:57 08/26/17 19:57 08/26/17 19:57 08/26/17 19:57 08/26/17 19:57 Results - Labs 08/27/17 23:29 08/26/17 21:35 Abnormal lab results RBC 3.19 M/mcL (3.82-4.97) L 08/26/17 21:35 Hgb 6.3 g/dL (11.5-15.4) L D 08/27/17 23:29 Hct 20.9 % (35.3-44.9) L 08/27/17 23:29 MCV 79.6 fL (83.0-100.0) L 08/26/17 21:35 MCH 23.5 pg (28.0-33.3) L 08/26/17 21:35 MCHC 29.5 g/dL (31.6-35.5) L 08/26/17 21:35 RDW 17.2 % (11.5-14.5) H 08/26/17 21:35 Plt Count 134 K/mcL (140-400) L 08/26/17 21:35 PT 16.6 Seconds (9.4-12.1) H 08/26/17 21:35 Chloride 114 mEq/L (98-107) H 08/26/17 21:35 BUN 47 mg/dL (8-23) H 08/26/17 21:35 BUN/Creatinine Ratio 55 (6-26) H 08/26/17 21:35 Glucose 119 mg/dL (70-105) H 08/26/17 21:35 POC Glucose 125 mg/dL (70-99) H 08/27/17 17:38 Calculated Osmolality 307 (280-300) H 08/26/17 21:35 Calcium 8.4 mg/dL (8.6-10.3) L 08/26/17 21:35 All other labs normal. Consult Discharge Plan - Plan Referrals: Preethi Green [Primary Care Provider] - <Laith Toledo - Last Filed: 08/28/17 21:52> Date of Encounter: 08/28/17 Review of Systems All systems PM: The remainder of the systems were reviewed and are negative General Surgery Exam Initial Vital Signs Temp Pulse Resp BP Pulse Ox 97.5 F L 87 16 104/62 99 08/26/17 19:57 08/26/17 19:57 08/26/17 19:57 08/26/17 19:57 08/26/17 19:57 Exam Initial Vital Signs Temp Pulse Resp BP Pulse Ox 97.5 F L 87 16 104/62 99 08/26/17 19:57 08/26/17 19:57 08/26/17 19:57 08/26/17 19:57 08/26/17 19:57 Results - Labs 08/28/17 18:22 08/28/17 15:13 Abnormal lab results RBC 3.39 M/mcL (3.82-4.97) L 08/28/17 15:13 Hgb 8.5 g/dL (11.5-15.4) L 08/28/17 18:22 Hct 26.3 % (35.3-44.9) L 08/28/17 18:22 MCV 80.8 fL (83.0-100.0) L 08/28/17 15:13 MCH 25.4 pg (28.0-33.3) L 08/28/17 15:13 MCHC 31.4 g/dL (31.6-35.5) L 08/28/17 15:13 RDW 17.2 % (11.5-14.5) H 08/28/17 15:13 Plt Count 115 K/mcL (140-400) L 08/28/17 15:13 PT 14.2 Seconds (9.4-12.1) H 08/28/17 15:13 Chloride 117 mEq/L (98-107) H 08/28/17 15:13 BUN 31 mg/dL (8-23) H 08/28/17 15:13 BUN/Creatinine Ratio 36 (6-26) H 08/28/17 15:13 Glucose 114 mg/dL (70-105) H 08/28/17 15:13 POC Glucose 125 mg/dL (70-99) H 08/27/17 17:38 Calculated Osmolality 305 (280-300) H 08/28/17 15:13 Calcium 8.3 mg/dL (8.6-10.3) L 08/28/17 15:13 Total Bilirubin 1.5 mg/dL (0.3-1.0) H 08/28/17 15:13 Direct Bilirubin 0.5 mg/dL (0.0-0.2) H 08/28/17 15:13 Serum Total Protein 5.0 g/dL (6.4-8.9) L 08/28/17 15:13 Albumin 2.8 g/dL (3.5-5.7) L 08/28/17 15:13 Globulin 2.2 g/dL (2.4-3.5) L 08/28/17 15:13 Diabetes panel 08/28/17 Range/Units 15:13 Sodium 144 (136-145) mEq/L Potassium 3.6 (3.5-5.1) mEq/L Chloride 117 H (98-107) mEq/L Carbon Dioxide 24 (23-29) mEq/L BUN 31 H (8-23) mg/dL Creatinine 0.85 (0.60-1.20) mg/dL Glucose 114 H (70-105) mg/dL Calcium 8.3 L (8.6-10.3) mg/dL AST 20 (13-39) Units/L ALT 10 (7-52) Units/L Alkaline Phosphatase 51 (34-104) Units/L Albumin 2.8 L (3.5-5.7) g/dL Calcium panel 08/28/17 Range/Units 15:13 Calcium 8.3 L (8.6-10.3) mg/dL Albumin 2.8 L (3.5-5.7) g/dL Pituitary panel 08/28/17 Range/Units 15:13 Sodium 144 (136-145) mEq/L Potassium 3.6 (3.5-5.1) mEq/L Chloride 117 H (98-107) mEq/L Carbon Dioxide 24 (23-29) mEq/L BUN 31 H (8-23) mg/dL Creatinine 0.85 (0.60-1.20) mg/dL Glucose 114 H (70-105) mg/dL Calcium 8.3 L (8.6-10.3) mg/dL Adrenal panel 08/28/17 Range/Units 15:13 Sodium 144 (136-145) mEq/L Potassium 3.6 (3.5-5.1) mEq/L Chloride 117 H (98-107) mEq/L Carbon Dioxide 24 (23-29) mEq/L BUN 31 H (8-23) mg/dL Creatinine 0.85 (0.60-1.20) mg/dL Glucose 114 H (70-105) mg/dL Calcium 8.3 L (8.6-10.3) mg/dL Total Bilirubin 1.5 H (0.3-1.0) mg/dL AST 20 (13-39) Units/L ALT 10 (7-52) Units/L Alkaline Phosphatase 51 (34-104) Units/L Albumin 2.8 L (3.5-5.7) g/dL All other labs normal. - Attending Attestation patient seen and examined. I have reviewed all labs, imaging, and notes, including this one. I agree with the above assessment and plan and wish to add the following... 67F with LGIB 2/2 UGI source; called overnight due to repeat bloody stools; no further bloody stool reported; likely residual blood making it ways through GI tract. transfused, patient with appropriate response; afebrile; VSS; okay for ice chips today; reassess h/h in AM; if stable and no signs of bleeding, then okay for CLD on 08/29 ; plan for repeat scope with Dr. Ocasio next week
[2017-08-28 15:25] LABS: Basophils % 0.3 %; Eosinophils # 0.1 K/mcL (0.0-0.6); Eosinophils % 2.1 %; Hematocrit 27.4 % (35.3-44.9); Immature Granulocytes % 0.3 % (0-4); Lymphocytes # 2.1 K/mcL (0.6-4.6); Lymphocytes % 36.7 %; Mean Corpuscular HGB Conc 31.4 g/dL (31.6-35.5); Mean Corpuscular Hemoglobin 25.4 pg (28.0-33.3); Mean Corpuscular Volume 80.8 fL (83.0-100.0); Monocytes # 0.6 K/mcL (0.0-1.3); Monocytes % 10.4 %; Neutrophils # 2.9 K/mcL (1.6-8.9); Platelet Count 115 K/mcL (140-400); Red Blood Count 3.39 M/mcL (3.82-4.97); Red Cell Distribution Width 17.2 % (11.5-14.5); Segmented Neutrophils % 50.2 %
[2017-08-28 15:30] LABS: Hemoglobin 8.6 g/dL (11.5-15.4)
[2017-08-28 15:35] LABS: INR 1.3; Prothrombin Time 14.2 Seconds (9.4-12.1)
[2017-08-28 15:47] LABS: Alanine Aminotransferase 10 Units/L (7-52); Albumin 2.8 g/dL (3.5-5.7); Albumin/Globulin Ratio 1.3 (1.1-2.2); Alkaline Phosphatase 51 Units/L (34-104); Aspartate Amino Transferase 20 Units/L (13-39); BUN/Creatinine Ratio 36 (6-26); Bilirubin,Direct 0.5 mg/dL (0.0-0.2); Bilirubin,Total 1.5 mg/dL (0.3-1.0); Blood Urea Nitrogen 31 mg/dL (8-23); Calcium 8.3 mg/dL (8.6-10.3); Carbon Dioxide 24 mEq/L (23-29); Chloride 117 mEq/L (98-107); Globulin 2.2 g/dL (2.4-3.5); Glucose 114 mg/dL (70-105); Osmolality,Calculated 305 (280-300); Potassium 3.6 mEq/L (3.5-5.1); Sodium 144 mEq/L (136-145); eGFR For African Americans > 60 (> 60); eGFR For Non-African Americans > 60 (> 60)
[2017-08-28 18:35] LABS: Hematocrit 26.3 % (35.3-44.9); Hemoglobin 8.5 g/dL (11.5-15.4)
[2017-08-29] MEDS: 0.9 % Sodium Chloride 1,000 ML IVC SCH ×2 (00:31→05:56)
[2017-08-29] MEDS: Pantoprazole 40 MG in 0.9 % Sodium Chloride Mini Bag 100 ML IVC SCH ×5 (00:44→19:51)
[2017-08-29] MEDS: Sucralfate 1 GM TABLET PO SCH ×4 (04:21→19:41)
[2017-08-29 04:41] LABS: Eosinophils % 3.1 %
[2017-08-29 04:43] LABS: Basophils % 0.8 %; Eosinophils # 0.1 K/mcL (0.0-0.6); Hematocrit 24.1 % (35.3-44.9); Hemoglobin 7.7 g/dL (11.5-15.4); Immature Platelets 1.5 % (1.1-6.1); Lymphocytes % 46.2 %; Mean Corpuscular Hemoglobin 26.6 pg (28.0-33.3); Mean Corpuscular Volume 83.1 fL (83.0-100.0); Mean Platelet Volume 9.9 fL (9.4-12.4); Monocytes # 0.3 K/mcL (0.0-1.3); Monocytes % 8.5 %; Neutrophils # 1.5 K/mcL (1.6-8.9); Red Cell Distribution Width 17.5 % (11.5-14.5); Segmented Neutrophils % 41.4 %
[2017-08-29 05:01] LABS: Lymphocytes # 1.7 K/mcL (0.6-4.6); Platelet Count 81 K/mcL (140-400)
[2017-08-29 05:02] LABS: BUN/Creatinine Ratio 36 (6-26); Blood Urea Nitrogen 27 mg/dL (8-23); Calcium 7.9 mg/dL (8.6-10.3); Carbon Dioxide 23 mEq/L (23-29); Chloride 118 mEq/L (98-107); Glucose 102 mg/dL (70-105); Osmolality,Calculated 301 (280-300); Potassium 3.5 mEq/L (3.5-5.1); Sodium 143 mEq/L (136-145); eGFR For African Americans > 60 (> 60); eGFR For Non-African Americans > 60 (> 60)
--- NOTE | 2017-08-29 11:04 | General Surgery Progress Note ---
<Lico Garcia - Last Filed: 08/29/17 11:07> Date of Encounter: 08/29/17 Time of Encounter: 11:00 - Assessment and Plan (1) GI bleed Current Visit: Yes Status: Acute Repeat GI endoscopy 08/30 Spis of clears 250cc q8hr NPO midnight IV PPI antiemetics PRN pain control encourage ambulation carafate slurry Qualifiers: GI bleed type/associated pathology: unspecified gastrointestinal hemorrhage type Qualified Code(s): K92.2 - Gastrointestinal hemorrhage, unspecified Subjective Patient reports: no new complaints, afebrile Narrative: Patient reports she is feeling well. Denies feeling faint, abdominal pain, bowel movements. Objective Vital Signs - Last 8 Hours Temp Pulse Resp BP Pulse Ox 08/29/17 07:46 98.2 F 71 18 113/47 98 08/29/17 04:37 76 08/29/17 03:55 98 F 71 18 110/55 96 Intake and Output 08/28/17 08/29/17 08/29/17 23:59 07:59 15:59 Intake Total 100 / 100 1000 / 1000 100 / 100 Output Total 500 / 500 250 / 250 Balance -400 / -400 750 / 750 100 / 100 Intake: IV Fluids 100 / 100 1000 / 1000 100 / 100 0.9 % Sodium Chloride 1,000 ML 800 / 800 @ 100 mls/hr IVC .Q10H [facility] Rx#: [id number] Protonix 40 MG In 0.9 % Sodium 100 / 100 200 / 200 100 / 100 Chloride (Mini-Bag +) 100 ML @ 20 mls/hr IVC .Q5H [facility] Rx#: [id number] Output: Urine 100 / 100 Catheter 500 / 500 150 / 150 Other: Meal NPO Percent of Meal Consumed 0% Weight 114.6 kg Blood Glucose* 116 101 Patient Weight 08/29/17 23:59 Weight 114.6 kg - General physical appearance well developed, well nourished, no distress - Respiratory normal respiratory effort - Cardiovascular Cardiovascular exam: Present: RRR - Abdomen Abdomen: Present: soft, non tender Hernia: none - Psychiatric oriented to time, oriented to person, oriented to place, speech is normal, memory intact, other - Labs 08/29/17 04:15 08/29/17 04:15 Diabetes panel 08/28/17 08/29/17 Range/Units 15:13 04:15 Sodium 144 143 (136-145) mEq/L Potassium 3.6 3.5 (3.5-5.1) mEq/L Chloride 117 H 118 H (98-107) mEq/L Carbon Dioxide 24 23 (23-29) mEq/L BUN 31 H 27 H (8-23) mg/dL Creatinine 0.85 0.75 (0.60-1.20) mg/dL Glucose 114 H 102 (70-105) mg/dL Calcium 8.3 L 7.9 L (8.6-10.3) mg/dL AST 20 (13-39) Units/L ALT 10 (7-52) Units/L Alkaline Phosphatase 51 (34-104) Units/L Albumin 2.8 L (3.5-5.7) g/dL Calcium panel 08/28/17 08/29/17 Range/Units 15:13 04:15 Calcium 8.3 L 7.9 L (8.6-10.3) mg/dL Albumin 2.8 L (3.5-5.7) g/dL Pituitary panel 08/28/17 08/29/17 Range/Units 15:13 04:15 Sodium 144 143 (136-145) mEq/L Potassium 3.6 3.5 (3.5-5.1) mEq/L Chloride 117 H 118 H (98-107) mEq/L Carbon Dioxide 24 23 (23-29) mEq/L BUN 31 H 27 H (8-23) mg/dL Creatinine 0.85 0.75 (0.60-1.20) mg/dL Glucose 114 H 102 (70-105) mg/dL Calcium 8.3 L 7.9 L (8.6-10.3) mg/dL Adrenal panel 08/28/17 08/29/17 Range/Units 15:13 04:15 Sodium 144 143 (136-145) mEq/L Potassium 3.6 3.5 (3.5-5.1) mEq/L Chloride 117 H 118 H (98-107) mEq/L Carbon Dioxide 24 23 (23-29) mEq/L BUN 31 H 27 H (8-23) mg/dL Creatinine 0.85 0.75 (0.60-1.20) mg/dL Glucose 114 H 102 (70-105) mg/dL Calcium 8.3 L 7.9 L (8.6-10.3) mg/dL Total Bilirubin 1.5 H (0.3-1.0) mg/dL AST 20 (13-39) Units/L ALT 10 (7-52) Units/L Alkaline Phosphatase 51 (34-104) Units/L Albumin 2.8 L (3.5-5.7) g/dL - VTE Documentation of Mechanical Device: Intermittent pneumatic compression device Consult Discharge Plan - Plan Referrals: Preethi Green [Primary Care Provider] - <Laith Toledo - Last Filed: 08/29/17 13:45> Date of Encounter: 08/29/17 Objective Vital Signs - Last 8 Hours Temp Pulse Resp BP Pulse Ox 08/29/17 11:26 98.3 F 76 18 117/54 98 08/29/17 07:46 98.2 F 71 18 113/47 98 Intake and Output 08/28/17 08/29/17 08/29/17 23:59 07:59 15:59 Intake Total 100 / 100 1000 / 1000 600 / 600 Output Total 500 / 500 250 / 250 Balance -400 / -400 750 / 750 600 / 600 Intake: IV Fluids 100 / 100 1000 / 1000 600 / 600 0.9 % Sodium Chloride 1,000 ML 800 / 800 500 / 500 @ 100 mls/hr IVC .Q10H [facility] Rx#: [id number] Protonix 40 MG In 0.9 % Sodium 100 / 100 200 / 200 100 / 100 Chloride (Mini-Bag +) 100 ML @ 20 mls/hr IVC .Q5H [facility] Rx#: [id number] Oral 0 / 0 Output: Urine 100 / 100 Catheter 500 / 500 150 / 150 Other: Meal NPO Percent of Meal Consumed 0% 0% Weight 114.6 kg Blood Glucose* 116 101 100 Patient Weight 08/29/17 23:59 Weight 114.6 kg - Labs 08/29/17 04:15 08/29/17 04:15 Diabetes panel 08/28/17 08/29/17 Range/Units 15:13 04:15 Sodium 144 143 (136-145) mEq/L Potassium 3.6 3.5 (3.5-5.1) mEq/L Chloride 117 H 118 H (98-107) mEq/L Carbon Dioxide 24 23 (23-29) mEq/L BUN 31 H 27 H (8-23) mg/dL Creatinine 0.85 0.75 (0.60-1.20) mg/dL Glucose 114 H 102 (70-105) mg/dL Calcium 8.3 L 7.9 L (8.6-10.3) mg/dL AST 20 (13-39) Units/L ALT 10 (7-52) Units/L Alkaline Phosphatase 51 (34-104) Units/L Albumin 2.8 L (3.5-5.7) g/dL Calcium panel 08/28/17 08/29/17 Range/Units 15:13 04:15 Calcium 8.3 L 7.9 L (8.6-10.3) mg/dL Albumin 2.8 L (3.5-5.7) g/dL Pituitary panel 08/28/17 08/29/17 Range/Units 15:13 04:15 Sodium 144 143 (136-145) mEq/L Potassium 3.6 3.5 (3.5-5.1) mEq/L Chloride 117 H 118 H (98-107) mEq/L Carbon Dioxide 24 23 (23-29) mEq/L BUN 31 H 27 H (8-23) mg/dL Creatinine 0.85 0.75 (0.60-1.20) mg/dL Glucose 114 H 102 (70-105) mg/dL Calcium 8.3 L 7.9 L (8.6-10.3) mg/dL Adrenal panel 08/28/17 08/29/17 Range/Units 15:13 04:15 Sodium 144 143 (136-145) mEq/L Potassium 3.6 3.5 (3.5-5.1) mEq/L Chloride 117 H 118 H (98-107) mEq/L Carbon Dioxide 24 23 (23-29) mEq/L BUN 31 H 27 H (8-23) mg/dL Creatinine 0.85 0.75 (0.60-1.20) mg/dL Glucose 114 H 102 (70-105) mg/dL Calcium 8.3 L 7.9 L (8.6-10.3) mg/dL Total Bilirubin 1.5 H (0.3-1.0) mg/dL AST 20 (13-39) Units/L ALT 10 (7-52) Units/L Alkaline Phosphatase 51 (34-104) Units/L Albumin 2.8 L (3.5-5.7) g/dL - Attending Attestation I have personally seen and examined the patient. I have reviewed pertinent labs , imaging, progress notes, including this one. I agree with the above assessment and plan and wish to include the following... patient looks and feels better; tolerating ice chips; advance to sips, NPO at midnight; likley low level bleeding as h/h declines; cont to trend; plan for repeat scope on 08/30 with Ninfa
--- NOTE | 2017-08-29 14:44 | Internal Med Progress Note ---
<Chris Chadwick - Last Filed: 08/29/17 14:42> Date of Encounter: 08/29/17 Time of Encounter: 14:42 - Assessment and plan (1) GI bleed Current Visit: Yes Status: Acute Assessment and plan: Patient presented with hematemesis and melena, with a history of chronic aspirin use and NSAID use for RA. PUD most likely based on presentation. She had elevated INR at 1.5. She has no known hepatic disease. A liver ultrasound done yesterday could not adequately visualize Liver. EGD showed clotted blood in gastric fundus. No visualized varicies. Patient on protonix and caralfate Repeat EGD planned for tomorrow H&H ordered for this afternoon to determine need for repeat transfusion LFTs within normal limits, suspicion for varices lower, will continue to monitor INR Qualifiers: GI bleed type/associated pathology: unspecified gastrointestinal hemorrhage type Qualified Code(s): K92.2 - Gastrointestinal hemorrhage, unspecified (2) Hypertension Current Visit: No Status: Chronic Assessment and plan: chronic and controlled on home meds Qualifiers: Hypertension type: essential hypertension Qualified Code(s): I10 - Essential (primary) hypertension (3) Hyperlipidemia Current Visit: No Status: Chronic Assessment and plan: Chronic and controlled on home meds Qualifiers: Hyperlipidemia type: unspecified Qualified Code(s): E78.5 - Hyperlipidemia , unspecified (4) Morbid obesity with BMI of 40.0-44.9, adult Current Visit: No Status: Chronic Assessment and plan: Patient will be counseled prior to discharge (5) Rheumatoid arthritis Current Visit: No Status: Chronic Assessment and plan: Chronic and controlled with home meds Qualifiers: Rheumatoid arthritis location: unspecified site Rheumatoid factor presence : unspecified presence Qualified Code(s): M06.9 - Rheumatoid arthritis, unspecified (6) DVT prophylaxis Current Visit: Yes Status: Acute Assessment and plan: DVT prophylaxis with pneumatic leg devices (7) Electrolyte abnormality Current Visit: Yes Status: Acute Assessment and plan: Patient found to be hypocalcemic and hyperchloremic Ionized calcium ordered to fete out true hypocalcemia or malnourishment Normal saline discontinued and half normal saline with 10 meq of potassium started Will check BMP again in the morning - Time Spent With Patient Total time spent is greater than 50% in coordination of care (as documented) at patient's floor/unit and/or counseling patient: - Subjective Interval history: No acute events overnight. Patient states she is more comfortable than the last several days. She was informed of the plan of care and agreed. She denies chest pain or shortness of breath, fever or chill, nausea, vomiting, or diarrhea. - Constitutional Vitals: Temp Pulse Resp BP Pulse Ox 98.3 F 76 18 117/54 98 08/29/17 11:26 08/29/17 11:26 08/29/17 11:26 08/29/17 11:08/29/17 11:26 General appearance: Present: cooperative, A&O X 3, morbidly obese, pleasant, no acute distress, answers questions appropriately Exam: No acute distress Alert and oriented x3 Skin warm and dry without pallor heart regular rate and rhythm with systolic ejection murmur lungs clear to auscultation bilaterally without adventitia abdomen soft and non-tender with normal bowel sounds legs non-edematous Internal Medicine: Result - Labs CBC & Chem 7: 08/29/17 04:15 08/29/17 04:15 Labs: Short CBC 08/28/17 08/28/17 08/29/17 Range/Units 15:13 18:22 04:15 WBC 5.8 3.6 L (4.3-11.1) K/mcL Hgb 8.6 L D 8.5 L 7.7 L (11.5-15.4) g/dL Hct 27.4 L 26.3 L 24.1 L (35.3-44.9) % Plt Count 115 L 81 L (140-400) K/mcL Neutrophils # 2.9 1.5 L (1.6-8.9) K/mcL BMP 08/28/17 08/29/17 15:13 04:15 Sodium 144 143 Potassium 3.6 3.5 Chloride 117 H 118 H Carbon Dioxide 24 23 BUN 31 H 27 H Creatinine 0.85 0.75 Glucose 114 H 102 Calcium 8.3 L 7.9 L Liver Function 08/28/17 Range/Units 15:13 Total Bilirubin 1.5 H (0.3-1.0) mg/dL Direct Bilirubin 0.5 H (0.0-0.2) mg/dL AST 20 (13-39) Units/L ALT 10 (7-52) Units/L Alkaline Phosphatase 51 (34-104) Units/L Albumin 2.8 L (3.5-5.7) g/dL - ABG Interpretation ABG results: PT/INR, D-dimer PT 14.2 Seconds (9.4-12.1) H 08/28/17 15:13 - Impressions Impressions Liver Ultrasound 08/28/17 09:00 IMPRESSION: Examination degraded by overlying bowel gas. Possible subtle nodular contour of the hepatic surface may represent cirrhosis, however, the liver is not well evaluated due to extensive overlying bowel gas. D/ / 08/28/2017 11:26:08 Steve Cheng MD / Latanya Zayas Interpreting Provider: Steve Cheng MD - VTE Documentation of Mechanical Device: Intermittent pneumatic compression device Consult Discharge Plan - Plan Referrals: Preethi Green [Primary Care Provider] - <Bella Wilder - Last Filed: 08/29/17 18:14> Date of Encounter: 08/29/17 - Assessment and plan (1) GI bleed Current Visit: Yes Status: Acute Qualifiers: GI bleed type/associated pathology: unspecified gastrointestinal hemorrhage type Qualified Code(s): K92.2 - Gastrointestinal hemorrhage, unspecified (2) Hypertension Current Visit: No Status: Chronic Qualifiers: Hypertension type: essential hypertension Qualified Code(s): I10 - Essential (primary) hypertension (3) Hyperlipidemia Current Visit: No Status: Chronic Qualifiers: Hyperlipidemia type: unspecified Qualified Code(s): E78.5 - Hyperlipidemia , unspecified (4) Morbid obesity with BMI of 40.0-44.9, adult Current Visit: No Status: Chronic (5) Rheumatoid arthritis Current Visit: No Status: Chronic Qualifiers: Rheumatoid arthritis location: unspecified site Rheumatoid factor presence : unspecified presence Qualified Code(s): M06.9 - Rheumatoid arthritis, unspecified (6) DVT prophylaxis Current Visit: Yes Status: Acute (7) Electrolyte abnormality Current Visit: Yes Status: Acute - Time Spent With Patient Total time spent is greater than 50% in coordination of care (as documented) at patient's floor/unit and/or counseling patient: - Constitutional Vitals: Temp Pulse Resp BP Pulse Ox 98.3 F 75 18 103/58 99 08/29/17 17:06 08/29/17 17:06 08/29/17 17:06 08/29/17 17:06 08/29/17 17:06 Internal Medicine: Result - Labs CBC & Chem 7: 08/29/17 04:15 08/29/17 04:15 Labs: Short CBC 08/28/17 08/29/17 Range/Units 18:22 04:15 WBC 3.6 L (4.3-11.1) K/mcL Hgb 8.5 L 7.7 L (11.5-15.4) g/dL Hct 26.3 L 24.1 L (35.3-44.9) % Plt Count 81 L (140-400) K/mcL Neutrophils # 1.5 L (1.6-8.9) K/mcL BMP 08/29/17 04:15 Sodium 143 Potassium 3.5 Chloride 118 H Carbon Dioxide 23 BUN 27 H Creatinine 0.75 Glucose 102 Calcium 7.9 L - ABG Interpretation ABG results: PT/INR, D-dimer PT 14.2 Seconds (9.4-12.1) H 08/28/17 15:13 - Impressions Impressions Liver Ultrasound 08/28/17 09:00 IMPRESSION: Examination degraded by overlying bowel gas. Possible subtle nodular contour of the hepatic surface may represent cirrhosis, however, the liver is not well evaluated due to extensive overlying bowel gas. D/ / 08/28/2017 11:26:08 Steve Cheng MD / Latanya Zayas Interpreting Provider: Steve Cheng MD - Attending Attestation I examined this patient and my medical decision-making was reviewed with the Resident Physician. I agree with the documented findings, disposition and treatment plan as described except to the extent set forth below.
[2017-08-30] MEDS: Pantoprazole 40 MG in 0.9 % Sodium Chloride Mini Bag 100 ML IVC SCH ×4 (00:33→20:08)
[2017-08-30] MEDS: Sucralfate 1 GM TABLET PO SCH ×4 (00:58→20:10)
[2017-08-30 04:18] LABS: Eosinophils % 2.6 %; Hemoglobin 7.8 g/dL (11.5-15.4); Immature Granulocytes % 0.3 % (0-4); Mean Corpuscular Hemoglobin 26.6 pg (28.0-33.3); Red Blood Count 2.93 M/mcL (3.82-4.97)
[2017-08-30 04:20] LABS: Basophils % 0.3 %; Eosinophils # 0.1 K/mcL (0.0-0.6); Hematocrit 24.5 % (35.3-44.9); Immature Platelets 2.1 % (1.1-6.1); Lymphocytes # 1.3 K/mcL (0.6-4.6); Lymphocytes % 36.9 %; Mean Corpuscular HGB Conc 31.8 g/dL (31.6-35.5); Mean Corpuscular Volume 83.6 fL (83.0-100.0); Mean Platelet Volume 10.4 fL (9.4-12.4); Monocytes # 0.3 K/mcL (0.0-1.3); Monocytes % 8.1 %; Neutrophils # 1.8 K/mcL (1.6-8.9); Platelet Count 83 K/mcL (140-400); Segmented Neutrophils % 51.8 %
[2017-08-30 04:20] LABS: VBG Ionized Calcium 1.21 mmol/L (1.15-1.35)
[2017-08-30 04:36] LABS: BUN/Creatinine Ratio 29 (6-26); Blood Urea Nitrogen 20 mg/dL (8-23); Calcium 7.8 mg/dL (8.6-10.3); Carbon Dioxide 20 mEq/L (23-29); Chloride 117 mEq/L (98-107); Glucose 84 mg/dL (70-105); Osmolality,Calculated 294 (280-300); Potassium 3.6 mEq/L (3.5-5.1); Sodium 141 mEq/L (136-145); eGFR For African Americans > 60 (> 60); eGFR For Non-African Americans > 60 (> 60)
--- NOTE | 2017-08-30 10:12 | General Surgery Progress Note ---
<Lico Garcia - Last Filed: 08/30/17 10:17> Date of Encounter: 08/30/17 Time of Encounter: 09:00 - Assessment and Plan (1) GI bleed Status: Acute Repeat GI endoscopy 08/30 Spis of clears 250cc q8hr NPO midnight IV PPI antiemetics PRN pain control encourage ambulation carafate slurry monitor hemoglobin and hematocrit Qualifiers: GI bleed type/associated pathology: unspecified gastrointestinal hemorrhage type Qualified Code(s): K92.2 - Gastrointestinal hemorrhage, unspecified Subjective Narrative: Mrs. Clifford is a 67 year old female with a PMH of RA, HTN, HLD, and carotid stenosis who was given a Surgical consult for an upper GI bleed. Patient appears in no acute distress. Patient requested liquids, was allowed to have ice chips and popsicles that aren't red. Objective Vital Signs - Last 8 Hours Temp Pulse Resp BP Pulse Ox 08/30/17 06:34 98.1 F 73 122/50 94 08/30/17 04:21 70 08/30/17 04:18 98.1 F 76 18 125/50 96 Intake and Output 08/29/17 08/30/17 08/30/17 23:59 07:59 15:59 Intake Total 100 / 100 1205 / 1205 0 / 0 Output Total 650 / 650 Balance 100 / 100 555 / 555 0 / 0 Intake: IV Fluids 100 / 100 1205 / 1205 Protonix 40 MG In 0.9 % Sodium 100 / 100 200 / 200 Chloride (Mini-Bag +) 100 ML @ 20 mls/hr IVC .Q5H [facility] Rx#: [id number] KCl 10 MEQ In 0.45% Sodium 1005 / 1005 Chloride 1000 Ml 1000 Ml 1,000 ML @ 75 mls/hr IVC .[id number] [facility] Rx#:[id number] Oral 0 / 0 0 / 0 Output: Catheter 650 / 650 Urethral (Hall) 650 / 650 Other: Meal Dinner Breakfast Percent of Meal Consumed 0% 0% Weight 116.5 kg Blood Glucose* 86 84 Patient Weight 08/30/17 23:59 Weight 116.5 kg - General physical appearance well developed, well nourished, no distress - Respiratory normal respiratory effort - Cardiovascular Cardiovascular exam: Present: RRR - Abdomen Abdomen: Present: soft, non tender - Psychiatric oriented to time, oriented to person, oriented to place - Labs 08/30/17 04:00 08/30/17 04:00 Diabetes panel 08/30/17 Range/Units 04:00 Sodium 141 (136-145) mEq/L Potassium 3.6 (3.5-5.1) mEq/L Chloride 117 H (98-107) mEq/L Carbon Dioxide 20 L (23-29) mEq/L BUN 20 (8-23) mg/dL Creatinine 0.70 (0.60-1.20) mg/dL Glucose 84 (70-105) mg/dL Calcium 7.8 L (8.6-10.3) mg/dL Calcium panel 08/30/17 Range/Units 04:00 Calcium 7.8 L (8.6-10.3) mg/dL Pituitary panel 08/30/17 Range/Units 04:00 Sodium 141 (136-145) mEq/L Potassium 3.6 (3.5-5.1) mEq/L Chloride 117 H (98-107) mEq/L Carbon Dioxide 20 L (23-29) mEq/L BUN 20 (8-23) mg/dL Creatinine 0.70 (0.60-1.20) mg/dL Glucose 84 (70-105) mg/dL Calcium 7.8 L (8.6-10.3) mg/dL Adrenal panel 08/30/17 Range/Units 04:00 Sodium 141 (136-145) mEq/L Potassium 3.6 (3.5-5.1) mEq/L Chloride 117 H (98-107) mEq/L Carbon Dioxide 20 L (23-29) mEq/L BUN 20 (8-23) mg/dL Creatinine 0.70 (0.60-1.20) mg/dL Glucose 84 (70-105) mg/dL Calcium 7.8 L (8.6-10.3) mg/dL - VTE Documentation of Mechanical Device: Intermittent pneumatic compression device Consult Discharge Plan - Plan Referrals: Preethi Green [Primary Care Provider] - 10/04/17 3:40 pm (please take Picture ID, and insurance card. Patient is put on a waiting list if something comes available sooner) Kanu Ca MD [Partnered Physician] - (Web request sent for follow up appt.) Prescriptions: Omeprazole [PriLOSEC] 40 mg PO BID #60 cap Sucralfate [Carafate] 1 gm PO QIDAC #120 tablet <Laith Toledo - Last Filed: 09/01/17 23:54> Date of Encounter: 09/01/17 Objective - Labs 08/31/17 04:00 08/31/17 04:00 - Attending Attestation I have personally seen and examined the patient. I have reviewed pertinent labs , imaging, progress notes, including this one. I agree with the above assessment and plan
--- NOTE | 2017-08-30 14:58 | Anesthesia Evaluation PreOp ---
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: Denies Any Significant HX Other Medical History: Other (obesity BMI=44.1) Anesthesia History: Past Anesthesia, Problems (PONV) Alcohol Use: none Drug use: none Medications and Allergies Aspirin Enteric Coated [Aspirin EC] 81 mg PO DAILY 08/27/17 [History] Atorvastatin [Lipitor] 40 mg PO HS 08/27/17 [History] Clopidogrel [Plavix] 75 mg PO DAILY 08/27/17 [History] Furosemide [Lasix] 20 mg PO DAILY 08/27/17 [History] Hydroxychloroquine Sulfate [Plaquenil] 200 mg PO DAILY 08/27/17 [History] Lisinopril [Zestril] 5 mg PO DAILY 08/27/17 [History] Meclizine [Antivert] 12.5 - 25 mg PO Q8H PRN 08/27/17 [History] Nitrofurantoin Monohyd/M-Cryst [Macrobid 100 mg Capsule] 100 mg PO BID 08/27/17 [History] Pantoprazole Sodium 40 mg PO DAILY 08/27/17 [History] 3 Allergy/AdvReac Type Severity Reaction Status Date / Time No Known Drug Allergies Allergy See Verified 08/27/17 10:32 Comments - Meds/Allergy Pre-op Review Medications Reviewed: Yes Allergies Reviewed: Yes Beta Blockers on Current Med List: No Anesthesia Results - Labs 08/30/17 04:00 08/30/17 04:00 Anesthesia Exam Vital Signs/O2 Sat/Glucose, Most Recent Temp Pulse Resp BP Pulse Ox 98.1 F 79 18 129/56 96 08/30/17 11:23 08/30/17 11:23 08/30/17 11:23 08/30/17 11:23 08/30/17 11:23 Blood Glucose* 80 Height: 5'4''/1.63m Weight: 256 lbs/116.5 kg NPO (# of Hours): 8 Pain Scale: 0 Pain Scale Used: Numeric (1 - 10) - HEENT Pupil (Motor): EOMI Mallampati: III Teeth: Normal (chipped right lower molar) Oral Opening: Greater than 3 - LOOM FIXER SUPERVISOR LOC: Oriented LOOM FIXER SUPERVISOR Motor: Normal RUE, Normal LUE, Normal RLE, Normal LLE, Normal Face [employer]OM [employer]ER SUPERVISOR Sensory: Normal: RUE, LUE, RLE, LLE, Face - Cardiac Rhythm: Regular Murmur: None - Pulmonary Breath Sounds: bilateral Clear Respiratory Effort: Symmetrical Anesthesia Assess/Plan ASA Score: 3 Modified Chuckie Scale for Level of Consciousness: Cooperative, oriented, and tranquil Anesthetic Plan: MAC Monitoring Plan: Standard Monitors
[2017-08-30] MEDS ORDERED: 0.9 % Sodium Chloride 1,000 ML IVC SCH (15:30)
[2017-08-30] MEDS ORDERED: *HR* Propofol 200 MG/20 ML VIAL IVP ONE (15:37)
--- NOTE | 2017-08-30 17:07 | Internal Med Progress Note ---
<Chris Chadwick - Last Filed: 08/30/17 17:13> Date of Encounter: 08/30/17 Time of Encounter: 17:05 - Assessment and plan (1) GI bleed Current Visit: Yes Status: Acute Assessment and plan: Patient presented with hematemesis and melena, with a history of chronic aspirin use and NSAID use for RA. PUD most likely based on presentation. She had elevated INR at 1.5. She has no known hepatic disease. A liver ultrasound done could not adequately visualize Liver. Primary EGD showed clotted blood in gastric fundus. No visualized varicies. Secondary EGD showed nn bleeding ulcer and grade 1 varices. Patient on protonix and caralfate Outpatient GI follow up planned H&H stable will continue to monitor INR Qualifiers: GI bleed type/associated pathology: unspecified gastrointestinal hemorrhage type Qualified Code(s): K92.2 - Gastrointestinal hemorrhage, unspecified (2) Hypertension Current Visit: No Status: Chronic Assessment and plan: chronic and controlled on home meds Qualifiers: Hypertension type: essential hypertension Qualified Code(s): I10 - Essential (primary) hypertension (3) Hyperlipidemia Current Visit: No Status: Chronic Assessment and plan: Chronic and controlled on home meds Qualifiers: Hyperlipidemia type: unspecified Qualified Code(s): E78.5 - Hyperlipidemia , unspecified (4) Morbid obesity with BMI of 40.0-44.9, adult Current Visit: No Status: Chronic Assessment and plan: Patient will be counseled prior to discharge (5) Rheumatoid arthritis Current Visit: No Status: Chronic Assessment and plan: Chronic and controlled with home meds Qualifiers: Rheumatoid arthritis location: unspecified site Rheumatoid factor presence : unspecified presence Qualified Code(s): M06.9 - Rheumatoid arthritis, unspecified (6) DVT prophylaxis Current Visit: Yes Status: Acute Assessment and plan: DVT prophylaxis with pneumatic leg devices (7) Electrolyte abnormality Current Visit: Yes Status: Acute Assessment and plan: Patient found to be hypocalcemic and hyperchloremic Ionized calcium ordered to fete out true hypocalcemia or malnourishment Normal saline discontinued and half normal saline with 10 meq of potassium started Ionized calcium wthithin normal range, chloride stable Will check BMP again in the morning - Time Spent With Patient Total time spent is greater than 50% in coordination of care (as documented) at patient's floor/unit and/or counseling patient: - Subjective Interval history: No acute events overnight. Patient states she is more comfortable than the last several days. She was informed of the plan of care and agreed. She denies chest pain or shortness of breath, fever or chill, nausea, vomiting, or diarrhea. - Constitutional Vitals: Temp Pulse Resp BP Pulse Ox 98.1 F 74 18 121/41 100 08/30/17 16:15 08/30/17 16:15 08/30/17 16:15 08/30/17 16:15 08/30/17 16:15 General appearance: Present: cooperative, A&O X 3, morbidly obese, pleasant, no acute distress, answers questions appropriately Exam: No acute Distress Alert and Oriented x 3 Heart regular rate and rhythm with systolic ejection murmur Lungs with good air movement, right sided wheeze Abdomen soft and non tender legs without edema Skin positive for pallor Internal Medicine: Result - Labs CBC & Chem 7: 08/30/17 04:00 08/30/17 04:00 Labs: Short CBC 08/30/17 Range/Units 04:00 WBC 3.4 L (4.3-11.1) K/mcL Hgb 7.8 L (11.5-15.4) g/dL Hct 24.5 L (35.3-44.9) % Plt Count 83 L (140-400) K/mcL Neutrophils # 1.8 (1.6-8.9) K/mcL BMP 08/30/17 04:00 Sodium 141 Potassium 3.6 Chloride 117 H Carbon Dioxide 20 L BUN 20 Creatinine 0.70 Glucose 84 Calcium 7.8 L - ABG Interpretation ABG results: PT/INR, D-dimer PT 14.2 Seconds (9.4-12.1) H 08/28/17 15:13 - Diagnostic Studies Other Images Additional comments: EGD on 08/30/17 showed non bleeding ulcer and grade 1 varices - VTE Documentation of Mechanical Device: Intermittent pneumatic compression device Consult Discharge Plan - Plan Referrals: Preethi Green [Primary Care Provider] - 10/04/17 3:40 pm (please take Picture ID, and insurance card. Patient is put on a waiting list if something comes available sooner) Kanu Ca MD [Partnered Physician] - (Web request sent for follow up appt.) <Bella Wilder - Last Filed: 08/30/17 17:46> Date of Encounter: 08/30/17 - Assessment and plan (1) GI bleed Current Visit: Yes Status: Acute Qualifiers: GI bleed type/associated pathology: unspecified gastrointestinal hemorrhage type Qualified Code(s): K92.2 - Gastrointestinal hemorrhage, unspecified (2) Hypertension Current Visit: No Status: Chronic Qualifiers: Hypertension type: essential hypertension Qualified Code(s): I10 - Essential (primary) hypertension (3) Hyperlipidemia Current Visit: No Status: Chronic Qualifiers: Hyperlipidemia type: unspecified Qualified Code(s): E78.5 - Hyperlipidemia , unspecified (4) Morbid obesity with BMI of 40.0-44.9, adult Current Visit: No Status: Chronic (5) Rheumatoid arthritis Current Visit: No Status: Chronic Qualifiers: Rheumatoid arthritis location: unspecified site Rheumatoid factor presence : unspecified presence Qualified Code(s): M06.9 - Rheumatoid arthritis, unspecified (6) DVT prophylaxis Current Visit: Yes Status: Acute (7) Electrolyte abnormality Current Visit: Yes Status: Acute - Time Spent With Patient Total time spent is greater than 50% in coordination of care (as documented) at patient's floor/unit and/or counseling patient: - Constitutional Vitals: Temp Pulse Resp BP Pulse Ox 98.1 F 74 18 121/41 100 08/30/17 16:15 08/30/17 16:15 08/30/17 16:15 08/30/17 16:15 08/30/17 16:15 Internal Medicine: Result - Labs CBC & Chem 7: 08/30/17 04:00 08/30/17 04:00 Labs: Short CBC 08/30/17 Range/Units 04:00 WBC 3.4 L (4.3-11.1) K/mcL Hgb 7.8 L (11.5-15.4) g/dL Hct 24.5 L (35.3-44.9) % Plt Count 83 L (140-400) K/mcL Neutrophils # 1.8 (1.6-8.9) K/mcL BMP 08/30/17 04:00 Sodium 141 Potassium 3.6 Chloride 117 H Carbon Dioxide 20 L BUN 20 Creatinine 0.70 Glucose 84 Calcium 7.8 L - ABG Interpretation ABG results: PT/INR, D-dimer PT 14.2 Seconds (9.4-12.1) H 08/28/17 15:13 - Attending Attestation I examined this patient and my medical decision-making was reviewed with the Resident Physician. I agree with the documented findings, disposition and treatment plan as described except to the extent set forth below. She is in no acute distress. She returned from EGD showing ulcer and grade I esophageal varicies. She is hemodynamically stable. Advancing diet today. Likely home today/tomorrow.
[2017-08-31] MEDS: Pantoprazole 40 MG in 0.9 % Sodium Chloride Mini Bag 100 ML IVC SCH ×3 (01:00→11:30)
[2017-08-31 04:24] LABS: Basophils % 0.7 %; Eosinophils # 0.2 K/mcL (0.0-0.6); Eosinophils % 4.2 %; Hematocrit 25.5 % (35.3-44.9); Hemoglobin 7.8 g/dL (11.5-15.4); Immature Granulocytes % 0.5 % (0-4); Lymphocytes # 1.4 K/mcL (0.6-4.6); Lymphocytes % 35.2 %; Mean Corpuscular HGB Conc 30.6 g/dL (31.6-35.5); Mean Corpuscular Hemoglobin 25.4 pg (28.0-33.3); Mean Corpuscular Volume 83.1 fL (83.0-100.0); Mean Platelet Volume 10.3 fL (9.4-12.4); Monocytes # 0.4 K/mcL (0.0-1.3); Monocytes % 10.2 %; Nucleated Red Blood Cells 0.5 /100 WBC (0); Platelet Count 117 K/mcL (140-400); Red Blood Count 3.07 M/mcL (3.82-4.97); Red Cell Distribution Width 18.2 % (11.5-14.5); Segmented Neutrophils % 49.2 %
[2017-08-31 05:10] LABS: BUN/Creatinine Ratio 18 (6-26); Blood Urea Nitrogen 14 mg/dL (8-23); Calcium 7.7 mg/dL (8.6-10.3); Carbon Dioxide 22 mEq/L (23-29); Chloride 114 mEq/L (98-107); Glucose 136 mg/dL (70-105); Osmolality,Calculated 291 (280-300); Potassium 3.4 mEq/L (3.5-5.1); Sodium 139 mEq/L (136-145); eGFR For African Americans > 60 (> 60); eGFR For Non-African Americans > 60 (> 60)
[2017-08-31] MEDS: Sucralfate 1 GM TABLET PO SCH ×3 (08:30→17:48)
--- NOTE | 2017-08-31 09:22 | Discharge Summary ---
<Chris Chadwick - Last Filed: 08/31/17 16:26> - NOTES TO OUTPATIENT PROVIDER Notes to Outpatient Provider: Patient was admitted 08/26 for hematemesis and melena, attributed to upper GI bleed. During her hospital course she was treated with protonix and carafate, and EGD was performed. She was found to have a non-actively bleeding ulcer and grade 1 varices. She will be discharged with Protonix 40mg BID and Sucralfate 1g PO QID. She will be scheduled for outpatient GI follow up. We are holding Plavix and Aspirin due to bleeding risk , reinstating these medications will need to be evaluated at follow up. Orders not resulted at time of discharge: Pending orders 08/27/17 19:13 H. Pylori Antigen, Fecal Routine 08/30/17 15:53 H. pylori Urease Culture [RM] Routine 08/30/17 16:12 Surgical Pathology [PTH] Routine Date of Encounter: 08/31/17 Time of Encounter: 09:17 - Discharge Diagnosis (1) GI bleed Priority: Primary Status: Acute Assessment and Plan: Patient presented with hematemesis and melena, with a history of chronic aspirin use and NSAID use for RA. PUD most likely based on presentation. She had elevated INR at 1.5. She has no known hepatic disease. A liver ultrasound done could not adequately visualize Liver. Primary EGD showed clotted blood in gastric fundus. No visualized varicies. Secondary EGD showed non bleeding ulcer and grade 1 varices. Patient on protonix and caralfate Outpatient GI follow up planned H&H stable will continue to monitor INR Qualifiers: GI bleed type/associated pathology: unspecified gastrointestinal hemorrhage type Qualified Code(s): K92.2 - Gastrointestinal hemorrhage, unspecified (2) Hypertension Priority: Secondary Status: Chronic Assessment and Plan: chronic and controlled on home meds Qualifiers: Hypertension type: essential hypertension Qualified Code(s): I10 - Essential (primary) hypertension (3) Hyperlipidemia Priority: Secondary Status: Chronic Assessment and Plan: Chronic and controlled on home meds Qualifiers: Hyperlipidemia type: unspecified Qualified Code(s): E78.5 - Hyperlipidemia , unspecified (4) Morbid obesity with BMI of 40.0-44.9, adult Priority: Secondary Status: Chronic Assessment and Plan: Patient will be counseled prior to discharge (5) Rheumatoid arthritis Priority: Secondary Status: Chronic Assessment and Plan: Chronic and controlled with home meds Qualifiers: Rheumatoid arthritis location: unspecified site Rheumatoid factor presence : unspecified presence Qualified Code(s): M06.9 - Rheumatoid arthritis, unspecified (6) DVT prophylaxis Priority: Secondary Status: Acute Assessment and Plan: DVT prophylaxis with pneumatic leg devices (7) Electrolyte abnormality Priority: Secondary Status: Acute Assessment and Plan: Patient found to be hypocalcemic and hyperchloremic Ionized calcium ordered to fete out true hypocalcemia or malnourishment Normal saline discontinued and half normal saline with 10 meq of potassium started Ionized calcium wthithin normal range, chloride stable Hospital course: Ms. Clifford is a 67 year old female with a PMH of RA, HTN, HLD, and carotid stenosis who on 08/26 had 3 episodes of hematemesis early in the AM. She presented to [facility] where she was treated with Meclizine and Macrobid and sent home. On returning home she had melena and so came to [place] ED. She was admitted for GI bleed with Hgb 8.1 and started on IV Protonix, Carafate, and IVF. H&H ordered Q6H. Made NPO and scheduled for EGD 08/27. DVT prophylaxis with EPCDs. Patient recieved 1 unit of blood PM of 08/26. Patient H&H stable 08/27. Labs showed elevated INR, concerning for possible cirrhosis and bleeding varices. Primary EGD 08/27 showed clotted blood without evidence of ulcer or varices. Liver Ultrasound was inconclusive. Patient received 2 more units of blood PM of 08/27. Patient stable 08/28,08/29. Second EGD 08/30 showed non bleeding ulcer and grade 1 varices. Patient H&H remained stable. She was found to be hypocalcemic and hyperchloremic. Ionized calcium ordered and found to be normal. Normal saline infusion was switched to half normal saline with 10meq potassium. Repeat labs on 08/31 showed corrected electrolytes. Patient cleared for discharge on 08/31. Discharged with 40mg Omeprazole BID and 1g Sucralfate QID. Follow up with PCP and GI scheduled. Discharge discussed with: patient, family - Time Spent with Patient Total time spent providing and/or coordinating discharge services: - Discharge Medications Prescriptions: Omeprazole [PriLOSEC] 40 mg PO BID #60 cap Sucralfate [Carafate] 1 gm PO QIDAC #120 tablet Home Medications: Atorvastatin [Lipitor] 40 mg PO HS 08/27/17 [History] Furosemide [Lasix] 20 mg PO DAILY 08/27/17 [History] Hydroxychloroquine Sulfate [Plaquenil] 200 mg PO DAILY 08/27/17 [History] Lisinopril [Zestril] 5 mg PO DAILY 08/27/17 [History] Omeprazole [PriLOSEC] 40 mg PO BID #60 cap 08/31/17 [Rx] Sucralfate [Carafate] 1 gm PO QIDAC #120 tablet 08/31/17 [Rx] Allergies/Adverse Reactions: 3 Allergy/AdvReac Type Severity Reaction Status Date / Time No Known Drug Allergies Allergy See Verified 08/27/17 10:32 Comments Date of admission: 08/26/17 21:40 Primary care physician: Preethi Green Consults: 08/26/17 21:14 Consult to Surgery [CONS] Routine Consulting Provider: Terri Ocasio Reason for Consult: GI bleed, needs EGD Time Notified: 21:14 Call Completed: Yes - Constitutional Vitals: Temp Pulse Resp BP Pulse Ox 98.3 F 74 16 117/44 96 08/31/17 07:08 08/31/17 07:08 08/31/17 07:08 08/31/17 07:08 08/31/17 07:08 General appearance: Present: cooperative, A&O X 3, morbidly obese, pleasant, no acute distress, answers questions appropriately Exam: Patient in no acute distress, eating breakfast on exam Alert and oriented x3 Heart regular rate and rhythm, 3/6 systolic ejection murmur Lungs clear to auscultation, no wheeze Abdomen soft and non tender - Patient Status Disposition: Still a Patient Condition: Fair Functional capacity at discharge: independent ambulation Overall status at discharge: patient is progressing back to baseline - Discharge Instructions Follow Up With: Preethi Green [Primary Care Provider] - 10/04/17 3:40 pm (please take Picture ID, and insurance card. Patient is put on a waiting list if something comes available sooner) Kanu Ca MD [Partnered Physician] - (Web request sent for follow up appt.) - Diet and Activity Activity: increase activity as tolerated, resume usual activities as tolerated Diet: advance to your usual diet - VTE Documentation of Mechanical Device: Intermittent pneumatic compression device <Bella Wilder - Last Filed: 08/31/17 23:55> Orders not resulted at time of discharge: Pending orders 08/27/17 19:13 H. Pylori Antigen, Fecal Routine 08/30/17 15:53 H. pylori Urease Culture [RM] Routine 08/30/17 16:12 Surgical Pathology [PTH] Routine Date of Encounter: 08/31/17 - Discharge Diagnosis (1) GI bleed Status: Acute Qualifiers: GI bleed type/associated pathology: unspecified gastrointestinal hemorrhage type Qualified Code(s): K92.2 - Gastrointestinal hemorrhage, unspecified (2) Hypertension Status: Chronic Qualifiers: Hypertension type: essential hypertension Qualified Code(s): I10 - Essential (primary) hypertension (3) Hyperlipidemia Status: Chronic Qualifiers: Hyperlipidemia type: unspecified Qualified Code(s): E78.5 - Hyperlipidemia , unspecified (4) Morbid obesity with BMI of 40.0-44.9, adult Status: Chronic (5) Rheumatoid arthritis Status: Chronic Qualifiers: Rheumatoid arthritis location: unspecified site Rheumatoid factor presence : unspecified presence Qualified Code(s): M06.9 - Rheumatoid arthritis, unspecified (6) DVT prophylaxis Status: Acute (7) Electrolyte abnormality Status: Acute Hospital course: Ms. Clifford is a 67 year old female - Time Spent with Patient Total time spent providing and/or coordinating discharge services: Date of admission: 08/26/17 21:40 Primary care physician: Preethi Green Consults: 08/26/17 21:14 Consult to Surgery [CONS] Routine Consulting Provider: Terri Ocasio Reason for Consult: GI bleed, needs EGD Time Notified: 21:14 Call Completed: Yes - Constitutional Vitals: Temp Pulse Resp BP Pulse Ox 98.2 F 96 16 143/60 96 08/31/17 11:07 08/31/17 11:07 08/31/17 11:07 08/31/17 11:07 08/31/17 11:07 - Attending Attestation I examined this patient and my medical decision-making was reviewed with the Resident Physician. I agree with the documented findings, disposition and treatment plan as described except to the extent set forth below. Patient with presented with acute hemorrhagic anemia secondary to peptic ulcer disease. She required PRBC transfusion and had EGD done showing non-bleeding ulcers and grade I esophageal varicies. Her anemia is now stable, hemodynamically stable. Of note; suspect she has hepatic disease of some sort as her INR is elevated but liver ultrasound was not reliable because of gas. With her esophageal varicies there is suspicion for cirrhosis. We have arranged for GI follow-up as outpatient. I had 15 minute discussion on avoidance of NSAIDs due to PUD. We also discussed avoiding alcohol, Tylenol products, and over the counter medications/herbals. She agreed not to take any new meds/herbals without discussing with primary care FIRST before taking any new medications.
[2017-08-31 11:09] VITALS: BP 143/60
--- NOTE | 2017-08-31 11:18 | Event Note ---
Date of Encounter: 08/31/17 Time of Encounter: 11:15 follow with GI in 1-2 weeks. Carafate 1G QID Omeprazole 40 mg BID OK to d/c from a surgical standpoint - Patient Status Disposition: Still a Patient Condition: Good Functional capacity at discharge: independent ambulation - Discharge Instructions Follow Up With: Preethi Green [Primary Care Provider] - 10/04/17 3:40 pm (please take Picture ID, and insurance card. Patient is put on a waiting list if something comes available sooner) Kanu Ca MD [Partnered Physician] - (Web request sent for follow up appt.)
[2017-08-31] MEDS: traMADol 50 MG TABLET PO PRN ×2 (11:32→13:20)
== END 2017-08-31 18:45 | disposition home or self-care (01) | DRG 369 ==
LOC: 3ANU → 2NNU 08-28 03:02
PROVIDERS: ADMIT Internal Medicine Nephrology; ATTEND Internal Medicine Nephrology
PROC: ENDOEBX (2017-08-30 17:30)

== ENCOUNTER 2019-03-04 13:31 | Observation (INO) ==
[2019-03-04] MEDS ORDERED: Ondansetron 4 MG/2 ML VIAL IVP PRN (16:01)
[2019-03-04] MEDS ORDERED: Naloxone 0.4 MG/ML INJ IVP PRN (16:01)
[2019-03-04] MEDS: Octreotide 400 MCG in 0.9 % Sodium Chloride 100 ML IVC SCH (16:46)
[2019-03-04] MEDS: cefTRIAXone 1,000 MG in Water for inj. (sterile) 10 ML IVP SCH (16:46)
[2019-03-04] MEDS: Pantoprazole 40 MG in 0.9 % Sodium Chloride Mini Bag 100 ML IVC SCH ×2 (16:46→20:36)
[2019-03-04 17:05] LABS: INR 1.2; Prothrombin Time 13.6 Seconds (9.4-12.1)
[2019-03-04 17:07] LABS: Basophils # 0.1 K/mcL (0.0-0.2); Basophils % 0.8 %; Eosinophils # 0.1 K/mcL (0.0-0.6); Eosinophils % 0.8 %; Hematocrit 31.6 % (35.3-44.9); Hemoglobin 10.3 g/dL (11.5-15.4); Immature Granulocytes % 0.3 % (0-4); Immature Platelets 2.9 % (1.1-6.1); Lymphocytes # 2.3 K/mcL (0.6-4.6); Lymphocytes % 34.1 %; Mean Corpuscular HGB Conc 32.6 g/dL (31.6-35.5); Mean Corpuscular Hemoglobin 29.1 pg (28.0-33.3); Mean Corpuscular Volume 89.3 fL (83.0-100.0); Monocytes # 0.6 K/mcL (0.0-1.3); Neutrophils # 3.7 K/mcL (1.6-8.9); Platelet Count 104 K/mcL (140-400); Red Blood Count 3.54 M/mcL (3.82-4.97); Red Cell Distribution Width 15.3 % (11.5-14.5); White Blood Count 6.7 K/mcL (4.3-11.1)
[2019-03-04 17:24] LABS: BUN/Creatinine Ratio 57 (6-26); Blood Urea Nitrogen 40 mg/dL (8-23); Calcium 8.4 mg/dL (8.6-10.3); Carbon Dioxide 22 mEq/L (23-29); Chloride 109 mEq/L (98-107); Glucose 108 mg/dL (70-105); Osmolality,Calculated 296 (280-300); Potassium 4.5 mEq/L (3.5-5.1); Sodium 138 mEq/L (136-145); eGFR For African Americans > 60 (> 60); eGFR For Non-African Americans > 60 (> 60)
[2019-03-04 17:27] LABS: Albumin 3.2 g/dL (3.5-5.7); Albumin/Globulin Ratio 1.3 (1.1-2.2); Bilirubin,Direct 0.3 mg/dL (0.0-0.2); Bilirubin,Indirect 0.8 mg/dL (0.0-1.0); Bilirubin,Total 1.1 mg/dL (0.3-1.0); Globulin 2.4 g/dL (2.4-3.5); Total Protein 5.6 g/dL (6.4-8.9)
[2019-03-04 17:50] LABS: Folate 6.1 ng/mL (3.0-16.0)
[2019-03-05] MEDS: Octreotide 400 MCG in 0.9 % Sodium Chloride 100 ML IVC SCH ×3 (00:37→17:52)
[2019-03-05] MEDS: Pantoprazole 40 MG in 0.9 % Sodium Chloride Mini Bag 100 ML IVC SCH ×2 (01:46→06:59)
[2019-03-05 02:14] LABS: Hematocrit 31.5 % (35.3-44.9); Hemoglobin 9.7 g/dL (11.5-15.4)
[2019-03-05 07:33] LABS: Hematocrit 29.6 % (35.3-44.9); Hemoglobin 9.6 g/dL (11.5-15.4)
[2019-03-05 08:26] LABS: Albumin 2.9 g/dL (3.5-5.7); Albumin/Globulin Ratio 1.2 (1.1-2.2); Bilirubin,Direct 0.2 mg/dL (0.0-0.2); Bilirubin,Indirect 0.7 mg/dL (0.0-1.0); Bilirubin,Total 0.9 mg/dL (0.3-1.0); Globulin 2.4 g/dL (2.4-3.5); Total Protein 5.3 g/dL (6.4-8.9)
[2019-03-05] MEDS: cefTRIAXone 1,000 MG in Water for inj. (sterile) 10 ML IVP SCH (08:45)
[2019-03-05] MEDS: Iron Sucrose Complex 250 MG in 0.9 % Sodium Chloride 250 ML IVPB SCH (08:56)
[2019-03-05 12:06] LABS: Hematocrit 30.4 % (35.3-44.9); Hemoglobin 9.6 g/dL (11.5-15.4)
[2019-03-05] MEDS ORDERED: Furosemide 20 MG TABLET PO PRN (12:06)
[2019-03-05 17:24] LABS: Hematocrit 29.7 % (35.3-44.9); Hemoglobin 9.5 g/dL (11.5-15.4)
[2019-03-05] MEDS: Pantoprazole 40 MG VIAL IVP SCH (17:50)
[2019-03-05 23:43] LABS: Hematocrit 28.6 % (35.3-44.9); Hemoglobin 8.9 g/dL (11.5-15.4)
[2019-03-06] MEDS: Octreotide 400 MCG in 0.9 % Sodium Chloride 100 ML IVC SCH ×2 (01:27→10:03)
[2019-03-06] MEDS: Pantoprazole 40 MG VIAL IVP SCH (05:25)
[2019-03-06 06:59] LABS: Hematocrit 29.6 % (35.3-44.9); Hemoglobin 9.4 g/dL (11.5-15.4); Mean Corpuscular HGB Conc 31.8 g/dL (31.6-35.5); Mean Corpuscular Hemoglobin 28.7 pg (28.0-33.3); Mean Corpuscular Volume 90.5 fL (83.0-100.0); Mean Platelet Volume 10.2 fL (9.4-12.4); Platelet Count 146 K/mcL (140-400); Red Blood Count 3.27 M/mcL (3.82-4.97)
[2019-03-06 07:00] LABS: White Blood Count 3.3 K/mcL (4.3-11.1)
[2019-03-06 07:20] LABS: BUN/Creatinine Ratio 25 (6-26); Blood Urea Nitrogen 20 mg/dL (8-23); Calcium 8.6 mg/dL (8.6-10.3); Carbon Dioxide 26 mEq/L (23-29); Chloride 108 mEq/L (98-107); Glucose 142 mg/dL (70-105); Osmolality,Calculated 297 (280-300); Potassium 4.2 mEq/L (3.5-5.1); Sodium 141 mEq/L (136-145); eGFR For African Americans > 60 (> 60); eGFR For Non-African Americans > 60 (> 60)
[2019-03-06] MEDS ORDERED: cefTRIAXone 1,000 MG in 0.9 % Sodium Chloride Mini Bag 100 ML IVPB SCH (09:00)
[2019-03-06] MEDS: Iron Sucrose Complex 250 MG in 0.9 % Sodium Chloride 250 ML IVPB SCH (10:00)
[2019-03-06] MEDS ORDERED: *HR* Propofol 200 MG/20 ML VIAL IVP ONE (12:45)
[2019-03-06] MEDS ORDERED: Lidocaine -MPF 2% 2 ML VIAL ONE (12:46)
[2019-03-06] MEDS ORDERED: Isovue-370 500 ML BOTTLE IVP ONE (13:16)
[2019-03-06] MEDS ORDERED: 0.9 % Sodium Chloride 500 ML ONE ×2 (13:21→15:26)
[2019-03-06] MEDS ORDERED: Heparin 1,000 UNITS/500 mL 500 ML ONE ×3 (13:21→14:45)
[2019-03-06] MEDS ORDERED: Sodium Tetradecyl Sulfate 2 ML VIAL IVP ONE (14:00)
[2019-03-06] MEDS ORDERED: *HR* FentaNYL (PF) 100 MCG/2 ML VIAL NS ONE (14:04)
[2019-03-06] MEDS ORDERED: *HR* Midazolam HCl 5 MG/5 ML VIAL IVP ONE (14:04)
[2019-03-06] MEDS ORDERED: *HR* FentaNYL (PF) 100 MCG/2 ML VIAL IVP ONE (14:20)
[2019-03-06] MEDS ORDERED: *HR* Midazolam HCl 2 MG/2 ML VIAL IVP ONE (14:45)
[2019-03-06] MEDS ORDERED: Iopamidol 100 ML in 0.9 % Sodium Chloride 50 ML IVP ONE ×3 (16:14)
[2019-03-06 16:24] VITALS: BP 201/82
[2019-03-06] MEDS ORDERED: CeFAZolin Premix DUPLEX 2,000 MG/50 ML BAG IVPB ONE (16:27)
== END 2019-03-06 16:57 | disposition critical access hospital (66) ==
LOC: 2ANU → SUATTDRO 15:31 → 2ANU 03-06 15:38
PROVIDERS: ADMIT Internal Medicine; ATTEND Internal Medicine